=== PATIENT | female | born 1945 | race Caucasian/White ===

== ENCOUNTER 2017-12-04 10:25 | Emergency (ER) | payer MEDICARE, OTHER, SELFPAY | END 2017-12-04 13:50 | disposition home or self-care (01) | PROVIDERS: Emergency Provider Emergency Medicine; Family Provider Internal Medicine; PCP Internal Medicine; Visit Provider Emergency Medicine | DX: J18.1 Lobar pneumonia, unspecified organism (principal); I50.9 Heart failure, unspecified | CPT/HCPCS: 36415; 71020; 71046; 80053; 83605; 83880; 84484; 85025; 85610; 85730; 87040; 93005; 93010; 96374; 99058; 99284; J1940 ==

== ENCOUNTER → 2018-04-12 15:31 | Outpatient (CLI) | payer MEDICARE, OTHER, SELFPAY ==
[2018-04-12 16:32] LABS: Appearance Urine UA CLOUDY; Bilirubin Urine UA NEGATIVE (NEGATIVE); Color Urine UA RED; Ketones Urine UA NEGATIVE (NEGATIVE); Leukocyte Esterase Urine UA 1+ (NEGATIVE); Nitrite Urine UA POSITIVE (Negative); Occult Blood Urine UA 3+ (Negative); Protein Urine UA 3+ (Negative); Specific Gravity Urine UA 1.015 (1.000-1.035); pH Urine UA 8.5 (4.5-8.0)
[2018-04-12 16:34] LABS: Glucose Urine UA Normal (Normal)
[2018-04-12 16:35] LABS: RBC Urine >100/HPF (0-5/HPF); Squamous Epithelial Cell Urine 1-5 /HPF; WBC Urine 10-30/HPF (0-5/HPF)
[2018-04-12 16:36] LABS: Bacteria Urine Many (>30); Culture Indicated Urine Specimen Cultured
== END ==
PROVIDERS: PCP Physician Assistant; Visit Provider Physician Assistant
DX: R10.84 Generalized abdominal pain (principal)
CPT/HCPCS: 81001; 87077; 87086; 87186

== ENCOUNTER 2018-07-15 16:38 | Inpatient (IN) | payer MEDICARE, OTHER, SELFPAY ==
[2018-07-15 16:59] VITALS: BP 200/149; PULSE 78; RESP 24; TEMP 36.7; O2SAT 100
--- NOTE | 2018-07-15 17:02 | ED.ABDPAIN ---
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 Patient's states that sometimes there but sometimes not. She states that is not present currently. It is on the right side sometimes. Patient also has not been eating very much according to the . I states she has been drinking liquids but has not been interested in food even though he offers anything that she would be interested in normally. No fevers. No passing out, no lateral weakness but he states she seems weaker than normal particularly today. They went out to dinner patient was complaining of some pain in her abdomen at that time which has since resolved but he states walking her out car she had difficulty. He states it was a generalized weakness and she agrees. Patient denies any chest pain or shortness of breath she denies any nausea or vomiting she has been having normal bowel she did a urine does the last week or 2 but they do not know the result there is concern for bladder infection. Patient has not had major changes to urination. Her states her color is not good and she is very pale. Related Data Home Medications Medication Instructions Recorded Confirmed alprazolam [Xanax XR] 0.5 mg PO BID PRN #0 01/11/17 tramadol 50 mg PO TID PRN #0 01/11/17 Previous Rx's Medication Instructions Recorded dabigatran etexilate [Pradaxa] 150 mg PO BID #60 cap 01/15/17 diltiazem HCl 240 mg PO QDAY #30 cap 01/15/17 metoprolol tartrate 50 mg PO BID #60 tab 01/15/17 Allergies Allergy/AdvReac Type Severity Reaction Status Date / Time No Known Allergies Allergy Uncoded 11/23/17 12:37 unknown Allergy Uncoded 07/15/18 16:59 Review of Systems Review of Systems All systems reviewed & are unremarkable except as noted in HPI and below (Patient can answer yes or no but has difficulty with actual speech.) Constitutional Reports anorexia, Denies fever(s), Denies frequent falls (no recent falls/trauma), Denies headache(s) and Reports weakness (general) Eyes Denies change in vision ENT Ears, Nose, Mouth, and Throat: Denies headache(s) Cardiovascular Denies chest pain, Denies diaphoresis, Denies syncope, Denies irregular heart rhythm, Denies lightheadedness, Denies palpitations, Denies dyspnea and Denies orthopnea Respiratory Denies change in phlegm color, Denies chest congestion, Denies cough and Denies dyspnea Gastrointestinal Gastrointestinal: Reports abdominal pain, Denies melena, Denies hematochezia, Denies change in bowel habits, Denies constipation, Denies diarrhea, Denies nausea and Denies vomiting Genitourinary Denies hematuria, Reports urinary frequency, Denies flank pain, Denies urinary incontinence and Denies urinary urgency Musculoskeletal Denies back pain Integumentary/Breasts Reports other (pallor) Neurologic Denies syncope, Denies frequent falls (no recent falls/trauma), Denies headache(s) and Reports weakness (general) Endocrine Denies palpitations PFSH Medical History Atrial fibrillation (Acute) Social History marital status: household members: spouse Smoking Status: Never smoker alcohol intake: current substance use type: does not use Exam Narrative Exam Narrative: GEN: well nourished, well appearing elderly female, patient is pale, alert and oriented, patient has difficulty giving full answers but is able to say yes or no and easily answers questions from this perspective. She can tell me her name with difficulty. patient appears to be in mild distress. HEENT: Atraumatic, pupils are equal round reactive to light, extraocular movements are intact, nares are clear, there is no conjunctival pallor. HEART: Regular rate and rhythm without murmur, clicks, rubs. Pulses are equal in upper and lower extremities LUNGS:Lungs clear to auscultation, no wheezes, rales, crackles, chest moves symmetrically ABD:bowel sounds normal, soft, non-tender, no guarding, rebound, rigidity, no masses noted, no hepatosplenomegaly :No CVA tenderness MSCL: Non-tender, no muscle atrophy, muscles strength 5/5 upper and lower extremities, full range of motion NEURO:CN 2-12 intact, sensation normal Initial Vital Signs Initial Vital Signs: Vital Signs Temperature 98.1 F 07/15/18 16:59 Pulse Rate 78 07/15/18 16:59 Respiratory Rate 24 07/15/18 16:59 Blood Pressure 200/149 H 07/15/18 16:59 Pulse Oximetry 100 07/15/18 16:59 Course Orders Ordered: ED Orders 07/15/18 16:51 Complete Blood Count AUTO DIFF Stat Comprehensive Metabolic Panel Stat Lipase Stat Troponin & CK Cardiac Panel Stat Type and Screen Stat 07/15/18 17:00 EKG-12 Lead Stat 07/15/18 17:01 XR acute abdomen series Stat 07/15/18 17:38 CT chest abd pel w con Stat Potassium Chloride/Sodium Chloride (Ns With Kcl 40 Meq) 1,000 mls @ 84 mls/hr IV CONT SHAHRAM Discontinued Medications Sodium Chloride (Normal Saline 0.9%) 1,000 mls @ 1,000 mls/hr IV BOLUS ONE Stop: 07/15/18 17:59 Last Admin: 07/15/18 17:55 Dose: 1,000 mls/hr Vital Signs - 8 hr 07/15/18 16:59 Temperature 98.1 F Pulse Rate 78 Respiratory Rate 24 Blood Pressure 200/149 H Pulse Oximetry 100 MDM - Abdominal Pain Lab Data Result diagrams: 07/15/18 16:51 07/15/18 16:51 Lab Results 07/15/18 07/15/18 07/15/18 Range/Units 16:51 16:51 16:51 WBC 6.1 (4.5-11.0) X10^3/uL RBC 3.04 L (4.0-5.2) X10^6/uL Hgb 12.0 (12.0-16.0) g/dL Hct 34.0 L (36-46) % MCV 112.1 H (80-100) fL MCH 39.6 H (26-34) PG MCHC 35.3 (30-36) % RDW 13.7 (11.6-14.8) % Plt Count 249 (150-400) X10^3/uL Neut % (Auto) 73.0 (50-75) % Lymph % (Auto) 14.2 L (25-40) % [place] % (Auto) 6.9 (3-14) % Eos % (Auto) 5.2 H (2-4) % Baso % (Auto) 0.7 (0-2) % Neut # (Auto) 4400 (6542-2839) /uL Sodium (137-145) mmol/L Potassium (3.4-5.1) mmol/L Chloride (98-107) mmol/L Carbon Dioxide (22-32) mmol/L BUN (7-17) mg/dL Creatinine (0.52-1.04) mg/dL Estimated GFR (>60) mL/min BUN/Creatinine Ratio (6-22) Glucose (80-110) mg/dL Calcium (8.4-10.2) mg/dL Total Bilirubin (0.2-1.3) mg/dL AST (14-36) IU/L ALT (9-52) IU/L Alkaline Phosphatase (38-126) U/L Total Creatine Kinase 26 L (30-135) U/L CK-MB (CK-2) TNP CK-MB (CK-2) Rel Index TNP Troponin I 0.014 (0.01-0.034) ng/mL Total Protein (6.3-8.2) g/dL Albumin (3.5-5.0) g/dL Globulin (1.7-4.1) g/dL Albumin/Globulin Ratio (1.0-2.8) Lipase (23-300) U/L Blood Type O Positive 07/15/18 Range/Units 16:51 WBC (4.5-11.0) X10^3/uL RBC (4.0-5.2) X10^6/uL Hgb (12.0-16.0) g/dL Hct (36-46) % MCV (80-100) fL MCH (26-34) PG MCHC (30-36) % RDW (11.6-14.8) % Plt Count (150-400) X10^3/uL Neut % (Auto) (50-75) % Lymph % (Auto) (25-40) % [place] % (Auto) (3-14) % Eos % (Auto) (2-4) % Baso % (Auto) (0-2) % Neut # (Auto) (6094-3604) /uL Sodium 142 (137-145) mmol/L Potassium 2.6 L* (3.4-5.1) mmol/L Chloride 98 (98-107) mmol/L Carbon Dioxide 28 (22-32) mmol/L BUN 15 (7-17) mg/dL Creatinine 0.90 (0.52-1.04) mg/dL Estimated GFR > 60.0 (>60) mL/min BUN/Creatinine Ratio 16.7 (6-22) Glucose 163 H (80-110) mg/dL Calcium 10.7 H (8.4-10.2) mg/dL Total Bilirubin 0.8 (0.2-1.3) mg/dL AST 48 H (14-36) IU/L ALT 18 (9-52) IU/L Alkaline Phosphatase 133 H (38-126) U/L Total Creatine Kinase (30-135) U/L CK-MB (CK-2) CK-MB (CK-2) Rel Index Troponin I (0.01-0.034) ng/mL Total Protein 8.2 (6.3-8.2) g/dL Albumin 4.0 (3.5-5.0) g/dL Globulin 4.2 H (1.7-4.1) g/dL Albumin/Globulin Ratio 1.0 (1.0-2.8) Lipase 104 (23-300) U/L Blood Type Imaging Data chest/abd xray: Radiologist's impression: [address] [address] XRay Report Signed Patient: Elisha Shultz [facility]#: [id number] : 8Acct:[id number] Age/Sex: 72 / FDate of Service: 07/15/18 Loc: ED Accession Number: [id number] Procedure: XR acute abdomen series Ordering Provider: Nury Callejas D.O. PROCEDURE: XR ACUTE ABDOMEN SERIES INDICATIONS: abdominal pain TECHNIQUE: One view chest and two views of the abdomen were acquired. COMPARISON: [facility], , CHEST 2 VIEW, 12/04/2017, 10:41. FINDINGS: Surgical changes and devices: Status post ORIF of right clavicle fracture. Chest: Lungs are clear. Heart size is normal. Patchy opacities noted in the right lung concerning for multilobar pneumonia. No pneumoperitoneum. Abdomen: Bowel gas pattern is normal. Large amount of stool noted in the rectal vault. No suspicious calcifications. Visualized solid organ contours appear normal. Bones: No suspicious bony lesions. Convex left lumbar spine scoliosis. IMPRESSION: 1. Right-sided multilobar pneumonia. 2. Severe fecal loading in the rectum concerning for fecal impaction. Dictated by: Adelina Cabello MD, PhD on 07/15/2018 at 17:33 Approved by: Adelina Cabello MD, PhD on 07/15/2018 at 17:34 ECG Data Attestation: I personally reviewed and interpreted this ECG as follows: Prior ECG tracings: available for review Interpretation: AFib with ventricular rate of 73 QRS of 132 and a QTC of 422. The patient has ST depression in V2 V5. Patient's prior EKG appears similar with ST segments in all leads. MDM Narrative Medical decision making narrative: Patient's lab work shows a hypokalemia which is likely secondary to her decreased intake although glucose is 163. Patient appears to have pneumonia on chest xray but also lower abdominal pain, Ct imaging ordered. Patient signed out to Dr. ochoa while pending for final dispo. Discharge Plan Departure Prescriptions: No Action tramadol 50 MG tablet 50 mg PO TID PRNQty: 0 RF: 0 alprazolam [Xanax XR] 0.5 MG tablet extended release 24 hr 0.5 mg PO BID PRNQty: 0 RF: 0 diltiazem HCl 240 MG capsule,extended release 24hr 240 mg PO QDAY Qty: 30 RF: 0 dabigatran etexilate [Pradaxa] 75 MG capsule 150 mg PO BID Qty: 60 RF: 0 metoprolol tartrate 50 MG tablet 50 mg PO BID Qty: 60 RF: 0
--- NOTE | 2018-07-15 17:10 | ED_ITS ---
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 Patient's states that sometimes there but sometimes not. She states that is not present currently. It is on the right side sometimes. Patient also has not been eating very much according to the . I states she has been drinking liquids but has not been interested in food even though he offers anything that she would be interested in normally. No fevers. No passing out, no lateral weakness but he states she seems weaker than normal particularly today. They went out to dinner patient was complaining of some pain in her abdomen at that time which has since resolved but he states walking her out car she had difficulty. He states it was a generalized weakness and she agrees. Patient denies any chest pain or shortness of breath she denies any nausea or vomiting she has been having normal bowel she did a urine does the last week or 2 but they do not know the result there is concern for bladder infection. Patient has not had major changes to urination. Her states her color is not good and she is very pale. Related Data Home Medications Medication Instructions Recorded Confirmed alprazolam [Xanax XR] 0.5 mg PO BID PRN #0 01/11/17 tramadol 50 mg PO TID PRN #0 01/11/17 Previous Rx's Medication Instructions Recorded dabigatran etexilate [Pradaxa] 150 mg PO BID #60 cap 01/15/17 diltiazem HCl 240 mg PO QDAY #30 cap 01/15/17 metoprolol tartrate 50 mg PO BID #60 tab 01/15/17 Allergies Allergy/AdvReac Type Severity Reaction Status Date / Time No Known Allergies Allergy Uncoded 11/23/17 12:37 unknown Allergy Uncoded 07/15/18 16:59 Review of Systems Review of Systems All systems reviewed & are unremarkable except as noted in HPI and below ( Patient can answer yes or no but has difficulty with actual speech.) Constitutional Reports anorexia, Denies fever(s), Denies frequent falls (no recent falls/trauma ), Denies headache(s) and Reports weakness (general) Eyes Denies change in vision ENT Ears, Nose, Mouth, and Throat: Denies headache(s) Cardiovascular Denies chest pain, Denies diaphoresis, Denies syncope, Denies irregular heart rhythm, Denies lightheadedness, Denies palpitations, Denies dyspnea and Denies orthopnea Respiratory Denies change in phlegm color, Denies chest congestion, Denies cough and Denies dyspnea Gastrointestinal Gastrointestinal: Reports abdominal pain, Denies melena, Denies hematochezia, Denies change in bowel habits, Denies constipation, Denies diarrhea, Denies nausea and Denies vomiting Genitourinary Denies hematuria, Reports urinary frequency, Denies flank pain, Denies urinary incontinence and Denies urinary urgency Musculoskeletal Denies back pain Integumentary/Breasts Reports other (pallor) Neurologic Denies syncope, Denies frequent falls (no recent falls/trauma), Denies headache( s) and Reports weakness (general) Endocrine Denies palpitations PFSH Medical History Atrial fibrillation (Acute) Social History marital status: household members: spouse Smoking Status: Never smoker alcohol intake: current substance use type: does not use Exam Narrative Exam Narrative: GEN: well nourished, well appearing elderly female, patient is pale, alert and oriented, patient has difficulty giving full answers but is able to say yes or no and easily answers questions from this perspective. She can tell me her name with difficulty. patient appears to be in mild distress. HEENT: Atraumatic, pupils are equal round reactive to light, extraocular movements are intact, nares are clear, there is no conjunctival pallor. HEART: Regular rate and rhythm without murmur, clicks, rubs. Pulses are equal in upper and lower extremities LUNGS:Lungs clear to auscultation, no wheezes, rales, crackles, chest moves symmetrically ABD:bowel sounds normal, soft, non-tender, no guarding, rebound, rigidity, no masses noted, no hepatosplenomegaly :No CVA tenderness MSCL: Non-tender, no muscle atrophy, muscles strength 5/5 upper and lower extremities, full range of motion NEURO:CN 2-12 intact, sensation normal Initial Vital Signs Initial Vital Signs: Vital Signs Temperature 98.1 F 07/15/18 16:59 Pulse Rate 78 07/15/18 16:59 Respiratory Rate 24 07/15/18 16:59 Blood Pressure 200/149 H 07/15/18 16:59 Pulse Oximetry 100 07/15/18 16:59 Course Orders Ordered: ED Orders 07/15/18 16:51 Complete Blood Count AUTO DIFF Stat Comprehensive Metabolic Panel Stat Lipase Stat Troponin & CK Cardiac Panel Stat Type and Screen Stat 07/15/18 17:00 EKG-12 Lead Stat 07/15/18 17:01 XR acute abdomen series Stat 07/15/18 17:38 CT chest abd pel w con Stat Potassium Chloride/Sodium Chloride (Ns With Kcl 40 Meq) 1,000 mls @ 84 mls/hr IV CONT SHAHRAM Discontinued Medications Sodium Chloride (Normal Saline 0.9%) 1,000 mls @ 1,000 mls/hr IV BOLUS ONE Stop: 07/15/18 17:59 Last Admin: 07/15/18 17:55 Dose: 1,000 mls/hr Vital Signs - 8 hr 07/15/18 16:59 Temperature 98.1 F Pulse Rate 78 Respiratory Rate 24 Blood Pressure 200/149 H Pulse Oximetry 100 MDM - Abdominal Pain Lab Data Result diagrams: 07/15/18 16:51 07/15/18 16:51 Lab Results 07/15/18 07/15/18 07/15/18 Range/Units 16:51 16:51 16:51 WBC 6.1 (4.5-11.0) X10^3/uL RBC 3.04 L (4.0-5.2) X10^6/uL Hgb 12.0 (12.0-16.0) g/dL Hct 34.0 L (36-46) % MCV 112.1 H (80-100) fL MCH 39.6 H (26-34) PG MCHC 35.3 (30-36) % RDW 13.7 (11.6-14.8) % Plt Count 249 (150-400) X10^3/uL Neut % (Auto) 73.0 (50-75) % Lymph % (Auto) 14.2 L (25-40) % [place] % (Auto) 6.9 (3-14) % Eos % (Auto) 5.2 H (2-4) % Baso % (Auto) 0.7 (0-2) % Neut # (Auto) 4400 (2821-1818) /uL Sodium (137-145) mmol/L Potassium (3.4-5.1) mmol/L Chloride (98-107) mmol/L Carbon Dioxide (22-32) mmol/L BUN (7-17) mg/dL Creatinine (0.52-1.04) mg/dL Estimated GFR (>60) mL/min BUN/Creatinine Ratio (6-22) Glucose (80-110) mg/dL Calcium (8.4-10.2) mg/dL Total Bilirubin (0.2-1.3) mg/dL AST (14-36) IU/L ALT (9-52) IU/L Alkaline Phosphatase (38-126) U/L Total Creatine Kinase 26 L (30-135) U/L CK-MB (CK-2) TNP CK-MB (CK-2) Rel Index TNP Troponin I 0.014 (0.01-0.034) ng/mL Total Protein (6.3-8.2) g/dL Albumin (3.5-5.0) g/dL Globulin (1.7-4.1) g/dL Albumin/Globulin Ratio (1.0-2.8) Lipase (23-300) U/L Blood Type O Positive 07/15/18 Range/Units 16:51 WBC (4.5-11.0) X10^3/uL RBC (4.0-5.2) X10^6/uL Hgb (12.0-16.0) g/dL Hct (36-46) % MCV (80-100) fL MCH (26-34) PG MCHC (30-36) % RDW (11.6-14.8) % Plt Count (150-400) X10^3/uL Neut % (Auto) (50-75) % Lymph % (Auto) (25-40) % [place] % (Auto) (3-14) % Eos % (Auto) (2-4) % Baso % (Auto) (0-2) % Neut # (Auto) (5204-2147) /uL Sodium 142 (137-145) mmol/L Potassium 2.6 L* (3.4-5.1) mmol/L Chloride 98 (98-107) mmol/L Carbon Dioxide 28 (22-32) mmol/L BUN 15 (7-17) mg/dL Creatinine 0.90 (0.52-1.04) mg/dL Estimated GFR > 60.0 (>60) mL/min BUN/Creatinine Ratio 16.7 (6-22) Glucose 163 H (80-110) mg/dL Calcium 10.7 H (8.4-10.2) mg/dL Total Bilirubin 0.8 (0.2-1.3) mg/dL AST 48 H (14-36) IU/L ALT 18 (9-52) IU/L Alkaline Phosphatase 133 H (38-126) U/L Total Creatine Kinase (30-135) U/L CK-MB (CK-2) CK-MB (CK-2) Rel Index Troponin I (0.01-0.034) ng/mL Total Protein 8.2 (6.3-8.2) g/dL Albumin 4.0 (3.5-5.0) g/dL Globulin 4.2 H (1.7-4.1) g/dL Albumin/Globulin Ratio 1.0 (1.0-2.8) Lipase 104 (23-300) U/L Blood Type Imaging Data chest/abd xray: Radiologist's impression: [address] [address] XRay Report Signed Patient: Elisha Shultz [facility]#: [id number] : 8Acct:[id number] Age/Sex: 72 / FDate of Service: 07/15/18 Loc: ED Accession Number: [id number] Procedure: XR acute abdomen series Ordering Provider: Nury Callejas D.O. PROCEDURE: XR ACUTE ABDOMEN SERIES INDICATIONS: abdominal pain TECHNIQUE: One view chest and two views of the abdomen were acquired. COMPARISON: [facility], , CHEST 2 VIEW, 12/04/2017, 10:41. FINDINGS: Surgical changes and devices: Status post ORIF of right clavicle fracture. Chest: Lungs are clear. Heart size is normal. Patchy opacities noted in the right lung concerning for multilobar pneumonia. No pneumoperitoneum. Abdomen: Bowel gas pattern is normal. Large amount of stool noted in the rectal vault. No suspicious calcifications. Visualized solid organ contours appear normal. Bones: No suspicious bony lesions. Convex left lumbar spine scoliosis. IMPRESSION: 1. Right-sided multilobar pneumonia. 2. Severe fecal loading in the rectum concerning for fecal impaction. Dictated by: Adelina Cabello MD, PhD on 07/15/2018 at 17:33 Approved by: Adelina Cabello MD, PhD on 07/15/2018 at 17:34 ECG Data Attestation: I personally reviewed and interpreted this ECG as follows: Prior ECG tracings: available for review Interpretation: AFib with ventricular rate of 73 QRS of 132 and a QTC of 422. The patient has ST depression in V2 V5. Patient's prior EKG appears similar with ST segments in all leads. MDM Narrative Medical decision making narrative: Patient's lab work shows a hypokalemia which is likely secondary to her decreased intake although glucose is 163. Patient appears to have pneumonia on chest xray but also lower abdominal pain, Ct imaging ordered. Patient signed out to Dr. ochoa while pending for final dispo. Discharge Plan Departure Prescriptions: No Action tramadol 50 MG tablet 50 mg PO TID PRNQty: 0 RF: 0 alprazolam [Xanax XR] 0.5 MG tablet extended release 24 hr 0.5 mg PO BID PRNQty: 0 RF: 0 diltiazem HCl 240 MG capsule,extended release 24hr 240 mg PO QDAY Qty: 30 RF: 0 dabigatran etexilate [Pradaxa] 75 MG capsule 150 mg PO BID Qty: 60 RF: 0 metoprolol tartrate 50 MG tablet 50 mg PO BID Qty: 60 RF: 0
[2018-07-15 17:18] LABS: Add Manual Diff / Slide Review NO; Basophils Percent Auto 0.7 % (0-2); Eosinophils Percent Auto 5.2 % (2-4); Lymphocytes Percent Auto 14.2 % (25-40); Mean Corpuscular HGB Conc 35.3 % (30-36); Mean Corpuscular Hemoglobin 39.6 PG (26-34); Mean Corpuscular Volume 112.1 fL (80-100); Monocytes Percent Auto 6.9 % (3-14); Neutrophils Absolute Auto 4400 /uL (3000-5900); Platelet Count 249 X10^3/uL (150-400); Red Blood Cell Count 3.04 X10^6/uL (4.0-5.2); Red Cell Distribution Width 13.7 % (11.6-14.8); White Blood Cell Count 6.1 X10^3/uL (4.5-11.0)
[2018-07-15 17:19] LABS: Creatine Kinase 26 U/L (30-135)
[2018-07-15 17:20] LABS: Alanine Aminotransferase 18 IU/L (9-52); Alkaline Phosphatase 133 U/L (38-126); Aspartate Aminotransferase 48 IU/L (14-36); BUN Creatinine Ratio 16.7 (6-22); Bilirubin Total 0.8 mg/dL (0.2-1.3); Blood Urea Nitrogen 15 mg/dL (7-17); Calcium 10.7 mg/dL (8.4-10.2); Carbon Dioxide 28 mmol/L (22-32); Chloride 98 mmol/L (98-107); Estimated Glomerular Filt Rate > 60.0 mL/min (>60); Globulin 4.2 g/dL (1.7-4.1); Glucose 163 mg/dL (80-110); HEMOLYSIS < 15 (0-50); Lipase 104 U/L (23-300); Sodium 142 mmol/L (137-145); Total Protein 8.2 g/dL (6.3-8.2)
[2018-07-15 17:32] LABS: Troponin I 0.014 ng/mL (0.01-0.034)
[2018-07-15 17:33] LABS: Potassium 2.6 mmol/L (3.4-5.1)
--- NOTE | 2018-07-15 17:38 | DI.CT.S_ITS ---
PROCEDURE: CT CHEST ABD PEL W CON INDICATIONS: lower abdominal pain, ? pnuemonia, weakness TECHNIQUE: After the administration of intravenous contrast, 5 mm thick sections acquired from the lung apices to the symphysis. 5 mm coronal and sagittal reformats were performed, with additional 7 mm MIP reformats through the lungs. For radiation dose reduction, the following was used: automated exposure control, adjustment of mA and/or kV according to patient size. COMPARISON: [facility], CR, CHEST 2 VIEW, 12/04/2017, 10:41. [facility], CR, XR ACUTE ABDOMEN SERIES, 07/15/2018, 17:13. FINDINGS: Image quality: Excellent. CHEST: Lungs and pleura: Patchy consolidation noted in the right lung compatible with multilobar pneumonia. Left lung is clear of acute opacities. Trace right-sided pleural effusion noted. No pneumothorax. Central and peripheral airways appear patent and normal in caliber. Mediastinum: Heart size is enlarged. No pericardial effusion. No mediastinal or hilar adenopathy by size criteria. Thoracic aorta and central pulmonary arteries are normal in size. Esophagus is normal in caliber. No hiatal hernia. Chest wall: No axillary or supraclavicular adenopathy by size criteria. ABDOMEN: Solid organs: Liver is normal in size and enhancement. Gallbladder is within normal limits. Biliary system is non dilated. Pancreas enhances normally. Spleen is normal in size and enhancement. No adrenal nodules. Kidneys demonstrate normal size and enhancement, without hydronephrosis. Peritoneum and bowel: Moderate amount of stool noted in the right colon. Large amount of stool noted in the rectum. There is mild, diffuse rectal wall thickening with adjacent mild inflammatory changes. No free air. Trace free fluid noted in the presacral pelvis. The appendix is not definitely visualized. Nodes and vessels: No retroperitoneal or mesenteric adenopathy by size criteria. Aorta and inferior vena cava are normal in size. Scattered atherosclerotic calcifications are noted in the abdominal and pelvic vasculature. Miscellaneous: No ventral hernias. PELVIS: Genitourinary: Bladder wall thickness is normal. Miscellaneous: No inguinal hernias or adenopathy. Bones: No suspicious bony lesions. Chronic appearing L1 and L3 compression fractures. Postsurgical changes compatible with ORIF of right clavicle fracture noted. Chronic appearing anterior right second and third rib fractures are noted. Spine degenerative disease and facet arthropathy noted. IMPRESSION: 1. Right lung multilobar pneumonia. 2. Stercoral proctitis with rectal fecal impaction. Recommend close clinical observation to exclude developing stercoral ulcer. 3. Trace free fluid in the presacral pelvis likely related to adjacent proctitis. No fringe peritoneal air 4. Cardiomegaly. 5. Appendix is not definitely visualized. Early manifestation appendicitis cannot be excluded. Dictated by: Adelina Cabello MD, PhD on 07/15/2018 at 18:05 Approved by: Adelina Cabello MD, PhD on 07/15/2018 at 18:15
[2018-07-15] MEDS: SODIUM CHLORIDE 0.9% 1,000 ML 1000 ML IV (17:55)
[2018-07-15] MEDS: KCL 40 MEQ IN NS 1,000 ML 84 MEQ IV (18:07)
[2018-07-15 18:08] VITALS: BP 104/60; PULSE 72; RESP 18; O2SAT 95
[2018-07-15 18:23] LABS: RBC Morphology Normal Morphology
[2018-07-15 19:00] VITALS: BP 132/76; PULSE 76; RESP 19; O2SAT 94
[2018-07-15] MEDS: CEFTRIAXONE 1 GM/50 ML FROZ.PIGGY IV (19:04)
--- NOTE | 2018-07-15 19:12 | ED.WEAKNESS ---
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) Related Data Home Medications Medication Instructions Recorded Confirmed alprazolam [Xanax XR] 0.5 mg PO BID PRN #0 01/11/17 07/15/18 tramadol 50 mg PO TID PRN #0 01/11/17 07/15/18 Previous Rx's Medication Instructions Recorded dabigatran etexilate [Pradaxa] 150 mg PO BID #60 cap 01/15/17 diltiazem HCl 240 mg PO QDAY #30 cap 01/15/17 metoprolol tartrate 50 mg PO BID #60 tab 01/15/17 Allergies Allergy/AdvReac Type Severity Reaction Status Date / Time metronidazole [From Flagyl] Allergy Severe Anaphylaxis Verified 07/15/18 22:02 Review of Systems Constitutional Denies frequent falls (no recent falls/trauma), Denies headache(s) and Reports weakness (general) ENT Ears, Nose, Mouth, and Throat: Denies headache(s) Cardiovascular Denies syncope Neurologic Denies syncope, Denies frequent falls (no recent falls/trauma), Denies headache(s) and Reports weakness (general) PFSH Medical History Atrial fibrillation (Acute) Social History marital status: household members: spouse Smoking Status: Never smoker alcohol intake: current substance use type: does not use Exam Initial Vital Signs Initial Vital Signs: Vital Signs Temperature 98.1 F 07/15/18 16:59 Pulse Rate 78 07/15/18 16:59 Respiratory Rate 24 07/15/18 16:59 Blood Pressure 200/149 H 07/15/18 16:59 Pulse Oximetry 100 07/15/18 16:59 Course Orders Ordered: ED Orders 07/15/18 16:51 Complete Blood Count AUTO DIFF Stat Comprehensive Metabolic Panel Stat Lipase Stat Troponin & CK Cardiac Panel Stat Type and Screen Stat 07/15/18 17:00 EKG-12 Lead Stat 07/15/18 17:01 XR acute abdomen series Stat 07/15/18 17:38 CT chest abd pel w con Stat 07/16/18 05:00 Basic Metabolic Panel Routine Complete Blood Count AUTO DIFF Routine Potassium Chloride/Sodium Chloride (Ns With Kcl 40 Meq) 1,000 mls @ 84 mls/hr IV CONT SHAHRAM Last Infusion: 07/15/18 19:58 Dose: 84 mls/hr Admin: 07/15/18 18:07 Dose: 84 mls/hr Azithromycin 500 mg/ Dextrose 250 mls @ 250 mls/hr IV Q24H [facility] Last Infusion: 07/15/18 23:27 Dose: 0 mls/hr Admin: 07/15/18 21:49 Dose: 250 mls/hr Sodium Chloride (Normal Saline 0.9%) 1,000 mls @ 125 mls/hr IV CONT SHAHRAM Last Admin: 07/15/18 21:52 Dose: 125 mls/hr Tramadol HCl (Ultram) 50 mg PO QID PRN PRN Reason: Pain, Moderate (4-6) Last Admin: 07/15/18 23:50 Dose: 50 mg Discontinued Medications Sodium Chloride (Normal Saline 0.9%) 1,000 mls @ 1,000 mls/hr IV BOLUS ONE Stop: 07/15/18 17:59 Last Infusion: 07/15/18 19:12 Dose: 0 mls/hr Admin: 07/15/18 17:55 Dose: 1,000 mls/hr Ceftriaxone Sodium/Dextrose (Rocephin) 1 gm in 50 mls @ 100 mls/hr IV NOW ONE Stop: 07/15/18 18:36 Last Infusion: 07/15/18 19:58 Dose: 0 mls/hr Admin: 07/15/18 19:04 Dose: 100 mls/hr Metronidazole (Flagyl) 500 mg in 100 mls @ 100 mls/hr IV Q8H [facility] Last Admin: 07/15/18 22:00 Dose: Not Given Reevaluation(s) Reevaluation #1: I received sign-out from Dr. Callejas and have performed my own history and physical. I have reviewed labs and imaging with the patient and her and discussed diagnoses including multi lobar pneumonia, hypokalemia, and fecal impaction with stercoral proctitis. Consultations Consultation #1: Dr. Saldañale happy to accept. Requests ABX, fluids at 125, repeat labs in the morning Additionally, I called Dr. Cortés (Gen. Surgery) to discuss treatment plan for stercoral proctitis. He suggests addition of flagyl to ABX regimen as well as stool softeners Vital Signs - 8 hr 07/15/18 16:59 07/15/18 18:08 07/15/18 19:00 Temperature 98.1 F Pulse Rate 78 72 76 Respiratory Rate 24 18 19 Blood Pressure 200/149 H Blood Pressure [Left Arm] 104/60 132/76 Pulse Oximetry 100 95 94 07/15/18 19:50 07/15/18 23:50 Temperature 98.3 F 98.1 F Pulse Rate 86 77 Respiratory Rate 20 18 Blood Pressure 121/78 122/68 Blood Pressure [Left Arm] Pulse Oximetry 94 96 MDM - Weakness Lab Data Result diagrams: 07/15/18 16:51 07/15/18 16:51 Lab Results 07/15/18 07/15/18 07/15/18 Range/Units 16:51 16:51 16:51 WBC 6.1 (4.5-11.0) X10^3/uL RBC 3.04 L (4.0-5.2) X10^6/uL Hgb 12.0 (12.0-16.0) g/dL Hct 34.0 L (36-46) % MCV 112.1 H (80-100) fL MCH 39.6 H (26-34) PG MCHC 35.3 (30-36) % RDW 13.7 (11.6-14.8) % Plt Count 249 (150-400) X10^3/uL Neut % (Auto) 73.0 (50-75) % Lymph % (Auto) 14.2 L (25-40) % [place] % (Auto) 6.9 (3-14) % Eos % (Auto) 5.2 H (2-4) % Baso % (Auto) 0.7 (0-2) % Neut # (Auto) 4400 (7478-2227) /uL RBC Morphology Normal morphology Sodium (137-145) mmol/L Potassium (3.4-5.1) mmol/L Chloride (98-107) mmol/L Carbon Dioxide (22-32) mmol/L BUN (7-17) mg/dL Creatinine (0.52-1.04) mg/dL Estimated GFR (>60) mL/min BUN/Creatinine Ratio (6-22) Glucose (80-110) mg/dL Calcium (8.4-10.2) mg/dL Total Bilirubin (0.2-1.3) mg/dL AST (14-36) IU/L ALT (9-52) IU/L Alkaline Phosphatase (38-126) U/L Total Creatine Kinase 26 L (30-135) U/L CK-MB (CK-2) TNP CK-MB (CK-2) Rel Index TNP Troponin I 0.014 (0.01-0.034) ng/mL Total Protein (6.3-8.2) g/dL Albumin (3.5-5.0) g/dL Globulin (1.7-4.1) g/dL Albumin/Globulin Ratio (1.0-2.8) Lipase (23-300) U/L Blood Type O Positive Antibody Screen Negative 07/15/18 Range/Units 16:51 WBC (4.5-11.0) X10^3/uL RBC (4.0-5.2) X10^6/uL Hgb (12.0-16.0) g/dL Hct (36-46) % MCV (80-100) fL MCH (26-34) PG MCHC (30-36) % RDW (11.6-14.8) % Plt Count (150-400) X10^3/uL Neut % (Auto) (50-75) % Lymph % (Auto) (25-40) % [place] % (Auto) (3-14) % Eos % (Auto) (2-4) % Baso % (Auto) (0-2) % Neut # (Auto) (5127-5911) /uL RBC Morphology Sodium 142 (137-145) mmol/L Potassium 2.6 L* (3.4-5.1) mmol/L Chloride 98 (98-107) mmol/L Carbon Dioxide 28 (22-32) mmol/L BUN 15 (7-17) mg/dL Creatinine 0.90 (0.52-1.04) mg/dL Estimated GFR > 60.0 (>60) mL/min BUN/Creatinine Ratio 16.7 (6-22) Glucose 163 H (80-110) mg/dL Calcium 10.7 H (8.4-10.2) mg/dL Total Bilirubin 0.8 (0.2-1.3) mg/dL AST 48 H (14-36) IU/L ALT 18 (9-52) IU/L Alkaline Phosphatase 133 H (38-126) U/L Total Creatine Kinase (30-135) U/L CK-MB (CK-2) CK-MB (CK-2) Rel Index Troponin I (0.01-0.034) ng/mL Total Protein 8.2 (6.3-8.2) g/dL Albumin 4.0 (3.5-5.0) g/dL Globulin 4.2 H (1.7-4.1) g/dL Albumin/Globulin Ratio 1.0 (1.0-2.8) Lipase 104 (23-300) U/L Blood Type Antibody Screen Urine Dip Bedside Urine Glucose Negative Bedside Urine Bilirubin - Negative Bedside Urine Ketone - Negative Urine Specific [place] 1.010 Bedside Urine Occult Blood - Negative Bedside Urine pH 7.0 Bedside Urine Protein - Negative Bedside Urine Urobilinogen - Negative Bedside Urine Nitrite - Negative Bedside Urine Leukocytes - Negative Esterase Discharge Plan Departure Patient Disposition: Admitted As Inpatient Clinical Impression: Pneumonia, Acute hypokalemia, Abdominal pain Discharge Date/Time: 07/15/18 19:59 Interventions: ED Discharge Assessment Last Done: 07/15/18 19:59 Admit Date/Time: 07/15/18 19:14 Admit Provider: Eldon Swanson
--- NOTE | 2018-07-15 19:17 | ED_ITS ---
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) Related Data Home Medications Medication Instructions Recorded Confirmed alprazolam [Xanax XR] 0.5 mg PO BID PRN #0 01/11/17 07/15/18 tramadol 50 mg PO TID PRN #0 01/11/17 07/15/18 Previous Rx's Medication Instructions Recorded dabigatran etexilate [Pradaxa] 150 mg PO BID #60 cap 01/15/17 diltiazem HCl 240 mg PO QDAY #30 cap 01/15/17 metoprolol tartrate 50 mg PO BID #60 tab 01/15/17 Allergies Allergy/AdvReac Type Severity Reaction Status Date / Time metronidazole [From Flagyl] Allergy Severe Anaphylaxis Verified 07/15/18 22:02 Review of Systems Constitutional Denies frequent falls (no recent falls/trauma), Denies headache(s) and Reports weakness (general) ENT Ears, Nose, Mouth, and Throat: Denies headache(s) Cardiovascular Denies syncope Neurologic Denies syncope, Denies frequent falls (no recent falls/trauma), Denies headache( s) and Reports weakness (general) PFSH Medical History Atrial fibrillation (Acute) Social History marital status: household members: spouse Smoking Status: Never smoker alcohol intake: current substance use type: does not use Exam Initial Vital Signs Initial Vital Signs: Vital Signs Temperature 98.1 F 07/15/18 16:59 Pulse Rate 78 07/15/18 16:59 Respiratory Rate 24 07/15/18 16:59 Blood Pressure 200/149 H 07/15/18 16:59 Pulse Oximetry 100 07/15/18 16:59 Course Orders Ordered: ED Orders 07/15/18 16:51 Complete Blood Count AUTO DIFF Stat Comprehensive Metabolic Panel Stat Lipase Stat Troponin & CK Cardiac Panel Stat Type and Screen Stat 07/15/18 17:00 EKG-12 Lead Stat 07/15/18 17:01 XR acute abdomen series Stat 07/15/18 17:38 CT chest abd pel w con Stat 07/16/18 05:00 Basic Metabolic Panel Routine Complete Blood Count AUTO DIFF Routine Potassium Chloride/Sodium Chloride (Ns With Kcl 40 Meq) 1,000 mls @ 84 mls/hr IV CONT SHAHRAM Last Infusion: 07/15/18 19:58 Dose: 84 mls/hr Admin: 07/15/18 18:07 Dose: 84 mls/hr Azithromycin 500 mg/ Dextrose 250 mls @ 250 mls/hr IV Q24H [facility] Last Infusion: 07/15/18 23:27 Dose: 0 mls/hr Admin: 07/15/18 21:49 Dose: 250 mls/hr Sodium Chloride (Normal Saline 0.9%) 1,000 mls @ 125 mls/hr IV CONT SHAHRAM Last Admin: 07/15/18 21:52 Dose: 125 mls/hr Tramadol HCl (Ultram) 50 mg PO QID PRN PRN Reason: Pain, Moderate (4-6) Last Admin: 07/15/18 23:50 Dose: 50 mg Discontinued Medications Sodium Chloride (Normal Saline 0.9%) 1,000 mls @ 1,000 mls/hr IV BOLUS ONE Stop: 07/15/18 17:59 Last Infusion: 07/15/18 19:12 Dose: 0 mls/hr Admin: 07/15/18 17:55 Dose: 1,000 mls/hr Ceftriaxone Sodium/Dextrose (Rocephin) 1 gm in 50 mls @ 100 mls/hr IV NOW ONE Stop: 07/15/18 18:36 Last Infusion: 07/15/18 19:58 Dose: 0 mls/hr Admin: 07/15/18 19:04 Dose: 100 mls/hr Metronidazole (Flagyl) 500 mg in 100 mls @ 100 mls/hr IV Q8H [facility] Last Admin: 07/15/18 22:00 Dose: Not Given Reevaluation(s) Reevaluation #1: I received sign-out from Dr. Callejas and have performed my own history and physical. I have reviewed labs and imaging with the patient and her and discussed diagnoses including multi lobar pneumonia, hypokalemia , and fecal impaction with stercoral proctitis. Consultations Consultation #1: Dr. Saldañale happy to accept. Requests ABX, fluids at 125, repeat labs in the morning Additionally, I called Dr. Cortés (Gen. Surgery) to discuss treatment plan for stercoral proctitis. He suggests addition of flagyl to ABX regimen as well as stool softeners Vital Signs - 8 hr 07/15/18 16:59 07/15/18 18:08 07/15/18 19:00 Temperature 98.1 F Pulse Rate 78 72 76 Respiratory Rate 24 18 19 Blood Pressure 200/149 H Blood Pressure [Left Arm] 104/60 132/76 Pulse Oximetry 100 95 94 07/15/18 19:50 07/15/18 23:50 Temperature 98.3 F 98.1 F Pulse Rate 86 77 Respiratory Rate 20 18 Blood Pressure 121/78 122/68 Blood Pressure [Left Arm] Pulse Oximetry 94 96 MDM - Weakness Lab Data Result diagrams: 07/15/18 16:51 07/15/18 16:51 Lab Results 07/15/18 07/15/18 07/15/18 Range/Units 16:51 16:51 16:51 WBC 6.1 (4.5-11.0) X10^3/uL RBC 3.04 L (4.0-5.2) X10^6/uL Hgb 12.0 (12.0-16.0) g/dL Hct 34.0 L (36-46) % MCV 112.1 H (80-100) fL MCH 39.6 H (26-34) PG MCHC 35.3 (30-36) % RDW 13.7 (11.6-14.8) % Plt Count 249 (150-400) X10^3/uL Neut % (Auto) 73.0 (50-75) % Lymph % (Auto) 14.2 L (25-40) % [place] % (Auto) 6.9 (3-14) % Eos % (Auto) 5.2 H (2-4) % Baso % (Auto) 0.7 (0-2) % Neut # (Auto) 4400 (3187-3364) /uL RBC Morphology Normal morphology Sodium (137-145) mmol/L Potassium (3.4-5.1) mmol/L Chloride (98-107) mmol/L Carbon Dioxide (22-32) mmol/L BUN (7-17) mg/dL Creatinine (0.52-1.04) mg/dL Estimated GFR (>60) mL/min BUN/Creatinine Ratio (6-22) Glucose (80-110) mg/dL Calcium (8.4-10.2) mg/dL Total Bilirubin (0.2-1.3) mg/dL AST (14-36) IU/L ALT (9-52) IU/L Alkaline Phosphatase (38-126) U/L Total Creatine Kinase 26 L (30-135) U/L CK-MB (CK-2) TNP CK-MB (CK-2) Rel Index TNP Troponin I 0.014 (0.01-0.034) ng/mL Total Protein (6.3-8.2) g/dL Albumin (3.5-5.0) g/dL Globulin (1.7-4.1) g/dL Albumin/Globulin Ratio (1.0-2.8) Lipase (23-300) U/L Blood Type O Positive Antibody Screen Negative 07/15/18 Range/Units 16:51 WBC (4.5-11.0) X10^3/uL RBC (4.0-5.2) X10^6/uL Hgb (12.0-16.0) g/dL Hct (36-46) % MCV (80-100) fL MCH (26-34) PG MCHC (30-36) % RDW (11.6-14.8) % Plt Count (150-400) X10^3/uL Neut % (Auto) (50-75) % Lymph % (Auto) (25-40) % [place] % (Auto) (3-14) % Eos % (Auto) (2-4) % Baso % (Auto) (0-2) % Neut # (Auto) (3349-0596) /uL RBC Morphology Sodium 142 (137-145) mmol/L Potassium 2.6 L* (3.4-5.1) mmol/L Chloride 98 (98-107) mmol/L Carbon Dioxide 28 (22-32) mmol/L BUN 15 (7-17) mg/dL Creatinine 0.90 (0.52-1.04) mg/dL Estimated GFR > 60.0 (>60) mL/min BUN/Creatinine Ratio 16.7 (6-22) Glucose 163 H (80-110) mg/dL Calcium 10.7 H (8.4-10.2) mg/dL Total Bilirubin 0.8 (0.2-1.3) mg/dL AST 48 H (14-36) IU/L ALT 18 (9-52) IU/L Alkaline Phosphatase 133 H (38-126) U/L Total Creatine Kinase (30-135) U/L CK-MB (CK-2) CK-MB (CK-2) Rel Index Troponin I (0.01-0.034) ng/mL Total Protein 8.2 (6.3-8.2) g/dL Albumin 4.0 (3.5-5.0) g/dL Globulin 4.2 H (1.7-4.1) g/dL Albumin/Globulin Ratio 1.0 (1.0-2.8) Lipase 104 (23-300) U/L Blood Type Antibody Screen Urine Dip Bedside Urine Glucose Negative Bedside Urine Bilirubin - Negative Bedside Urine Ketone - Negative Urine Specific [place] 1.010 Bedside Urine Occult Blood - Negative Bedside Urine pH 7.0 Bedside Urine Protein - Negative Bedside Urine Urobilinogen - Negative Bedside Urine Nitrite - Negative Bedside Urine Leukocytes - Negative Esterase Discharge Plan Departure Patient Disposition: Admitted As Inpatient Clinical Impression: Pneumonia, Acute hypokalemia, Abdominal pain Discharge Date/Time: 07/15/18 19:59 Interventions: ED Discharge Assessment Last Done: 07/15/18 19:59 Admit Date/Time: 07/15/18 19:14 Admit Provider: Eldon Swanson
[2018-07-15 19:50] VITALS: BP 121/78; PULSE 86; RESP 20; TEMP 36.8; O2SAT 94
[2018-07-15 20:02] VITALS: BMI 18.3
[2018-07-15] MEDS: AZITHROMYCIN 500 MG in DEXTROSE 5% IN WATER 250 ML IV (21:49)
[2018-07-15] MEDS: SODIUM CHLORIDE 0.9% 1,000 ML 125 ML IV (21:52)
--- NOTE | 2018-07-15 22:51 | PC.NURSE ---
ADMIT Received pt at approximately 1950 via [employer], accompanied by spouse and ED RN. generalized weakness, 2PA to transfer to bed. pt with expressive aphasia from previous CVA but able to answer yes/no questions appropriately. pt prefers to defer to to answer questions regarding irina. reports pt's speech and generalized weakness has been getting progressively worse over the past few days. breath sounds diminished throughout, spO2 can be difficult to obtain due to pt's cold fingers. pt with occasional, moist, nonproductive cough. per 's report, pt occasionally winces from intermittent abdominal pain, warm blankets applied for comfort. telemetry and continuous o2 monitoring maintained. oriented pt to room. call light within reach.
[2018-07-15 23:50] VITALS: BP 122/68; PULSE 77; RESP 18; TEMP 36.7; O2SAT 96
[2018-07-15] MEDS: TRAMADOL 50 MG TABLET PO (23:50)
[2018-07-16 05:21] VITALS: BP 123/70; PULSE 88; RESP 19; TEMP 36.7; O2SAT 93
[2018-07-16 05:26] LABS: Add Manual Diff / Slide Review NO; Basophils Percent Auto 0.6 % (0-2); Eosinophils Percent Auto 7.3 % (2-4); Hematocrit 30.4 % (36-46); Hemoglobin 10.7 g/dL (12.0-16.0); Lymphocytes Percent Auto 20.1 % (25-40); Mean Corpuscular HGB Conc 35.2 % (30-36); Mean Corpuscular Hemoglobin 37.7 PG (26-34); Mean Corpuscular Volume 107.1 fL (80-100); Monocytes Percent Auto 10.5 % (3-14); Neutrophils Absolute Auto 3600 /uL (3000-5900); Neutrophils Percent Auto 61.5 % (50-75); Platelet Count 200 X10^3/uL (150-400); Red Blood Cell Count 2.83 X10^6/uL (4.0-5.2); Red Cell Distribution Width 13.8 % (11.6-14.8); White Blood Cell Count 5.9 X10^3/uL (4.5-11.0)
[2018-07-16 05:43] LABS: BUN Creatinine Ratio 15.7 (6-22); Blood Urea Nitrogen 11 mg/dL (7-17); Calcium 9.2 mg/dL (8.4-10.2); Carbon Dioxide 30 mmol/L (22-32); Chloride 107 mmol/L (98-107); Estimated Glomerular Filt Rate > 60.0 mL/min (>60); Glucose 95 mg/dL (80-110); HEMOLYSIS < 15 (0-50); Sodium 144 mmol/L (137-145)
[2018-07-16 05:56] LABS: Potassium 2.5 mmol/L (3.4-5.1)
[2018-07-16 08:00] VITALS: BP 140/78; PULSE 87; RESP 18; TEMP 36.9; O2SAT 96
[2018-07-16] MEDS: ACETAMINOPHEN 325 MG TABLET 975 MG PO ×3 (09:10→19:46)
[2018-07-16] MEDS: TRAMADOL 50 MG TABLET PO ×3 (09:11→19:45)
[2018-07-16] MEDS: POTASSIUM CHLORIDE 40 MEQ in SODIUM CHLORIDE 0.9% 500 ML 130 ML IV (09:59)
--- NOTE | 2018-07-16 11:17 | PC.NURSE ---
HR 140s/Telemetry a fib Call received from COMPUTER METEOROLOGIST Bal reporting patient HR jumping into 140s, rhythm showing a fib. Dr. Swanson made aware of change. Patient in no acute distress upon physical check. VSS.
[2018-07-16 11:30] VITALS: BP 109/67; PULSE 104; RESP 20; TEMP 36.8; O2SAT 94
--- NOTE | 2018-07-16 13:00 | CM.DANOTE ---
DCP: Assessment Review chart and met with and role of nurse discharge planner explained. Patient is a 72 year old female who came to the ER for increasing weakness and confusion. She was found to have a low potassium and pneumonia. PCP: Dr. Shruthi Lewis Insurance: Medicare and Stand [facility] Patient has a history of CVA about 1 1/2 years ago and she still has residual weakness and speech impairment. She lives with her in [place] in a single level home. Her sister lives next door. is her primary caregiver. She has no history of HH or SNF. She does not use any devices for walking but she does have a walker that although encourage to use she does not. She should have a PT evaluation when appropriate. Plan: Likely home with . Ashley Auguste RN
--- NOTE | 2018-07-16 13:46 | PM.HP.1 ---
History of Present Illness Date Patient Seen: 07/16/18 Chief complaint: CONFUSION Narrative: This is a 72-year-old female, who lives at her home in [place] with her , who presents with 2 months of diminishing ability to balance, with 2 weeks of diminishing eating and appetite, finally prompting a visit to the emergency department last night where she was diagnosed with pneumonia and severe obstipation causing stercoral colitis. Her baseline is atrial fibrillation with stroke effect causing expressive aphasia after a stroke 1 and half years ago. She has had no fevers, coughing, shortness of breath, chest pain, vomiting, abdominal pain or other clues as to what was going on with her symptoms. She was admitted for treatment of the obstipation, the pneumonia and her generalized weakness/lack of appetite and significant hypokalemia. The potassium is 2.5. Patient History Medical History Atrial fibrillation (Acute) CVA (cerebral vascular accident) (Acute) Expressive aphasia (Acute) Comment: She is not able to give any history. Family & Social History Family History: Reviewed 07/16/18 by Eldon Swanson MD Family history unavailable: Yes Social History: household members spouse Prior Living Arrangements House Safety & Behavioral: Feels Safe in Current Yes Environment Been Physically Hurt or No Threatened By a Person Suicidal Ideation Description None Suicide Plan Description No Plan Tobacco & Substance use: Smoking Status Never smoker alcohol intake current alcohol intake frequency holiday/special occasion Substance Use Type does not use Meds Home Medications Medication Instructions Recorded Confirmed Type alprazolam [Xanax XR] 0.5 mg PO BID PRN #0 01/11/17 07/15/18 History tramadol 50 mg PO TID PRN #0 01/11/17 07/15/18 History dabigatran etexilate [Pradaxa] 150 mg PO BID #60 cap 01/15/17 07/15/18 Rx diltiazem HCl 240 mg PO QDAY #30 cap 01/15/17 07/15/18 Rx metoprolol tartrate 50 mg PO BID #60 tab 01/15/17 07/15/18 Rx Allergies Allergy/AdvReac Type Severity Reaction Status Date / Time metronidazole [From Flagyl] Allergy Severe Anaphylaxis Verified 07/15/18 22:02 Review of Systems Review of Systems According to her there has been no fever, vomiting, cough, chest pain, abdominal pain, bleeding, rashes, seizures. She has had difficulty with balance and a diminishing appetite. unobtainable due to mental status Exam Vital Signs (past 8 hours): - 07/16/18 08:00 07/16/18 11:30 Temperature 98.5 F 98.2 F Pulse Rate 87 104 H Respiratory Rate 18 20 Blood Pressure 140/78 109/67 Pulse Oximetry 96 94 Oxygen Delivery Method Room Air Oxygen Flow Rate 0 Narrative Exam Narrative: She appears to be oriented to her name at least. She is quite alert. Her voice is soft, tremulous, word searching. Pupils are equally round and reactive to light and accommodation. Sclerae are pink and nonicteric. Extraocular muscles are intact. No lymph nodes are felt head, neck, supraclavicular area. There is no thyromegaly. There is no significant JVD. There are no carotid bruits heard. Heart is irregularly irregular without murmur. Lungs have right-sided crackles. Abdomen is soft, bowel sounds positive, nontender, no organomegaly. Extremities have no ankle edema. Neuro exam. She has symmetric wrist release of information clerk strength. Motor function in lower extremities similarly symmetric. I did not test balance and gait. Cranial nerves 2-12 tested intact. Tongue protrudes midline. There is no tremor. She is struggling to articulate. Objective Labs Result Diagrams: 07/16/18 05:01 07/16/18 05:01 Labs: Laboratory Results - last 24 hr 07/15/18 07/15/18 07/15/18 16:51 16:51 16:51 WBC 6.1 RBC 3.04 L Hgb 12.0 Hct 34.0 L MCV 112.1 H MCH 39.6 H MCHC 35.3 RDW 13.7 Plt Count 249 Neut % (Auto) 73.0 Lymph % (Auto) 14.2 L [place] % (Auto) 6.9 Eos % (Auto) 5.2 H Baso % (Auto) 0.7 Neut # (Auto) 4400 RBC Morphology Normal morphology Sodium Potassium Chloride Carbon Dioxide BUN Creatinine Estimated GFR BUN/Creatinine Ratio Glucose Calcium Total Bilirubin AST ALT Alkaline Phosphatase Total Creatine Kinase 26 L CK-MB (CK-2) TNP CK-MB (CK-2) Rel Index TNP Troponin I 0.014 Total Protein Albumin Globulin Albumin/Globulin Ratio Lipase Blood Type O Positive Antibody Screen Negative 07/15/18 07/16/18 07/16/18 16:51 05:01 05:01 WBC 5.9 RBC 2.83 L Hgb 10.7 L Hct 30.4 L MCV 107.1 H D MCH 37.7 H MCHC 35.2 RDW 13.8 Plt Count 200 Neut % (Auto) 61.5 Lymph % (Auto) 20.1 L [place] % (Auto) 10.5 Eos % (Auto) 7.3 H Baso % (Auto) 0.6 Neut # (Auto) 3600 RBC Morphology Sodium 142 144 Potassium 2.6 L* 2.5 L* Chloride 98 107 Carbon Dioxide 28 30 BUN 15 11 Creatinine 0.90 0.70 Estimated GFR > 60.0 > 60.0 BUN/Creatinine Ratio 16.7 15.7 Glucose 163 H 95 Calcium 10.7 H 9.2 Total Bilirubin 0.8 AST 48 H ALT 18 Alkaline Phosphatase 133 H Total Creatine Kinase CK-MB (CK-2) CK-MB (CK-2) Rel Index Troponin I Total Protein 8.2 Albumin 4.0 Globulin 4.2 H Albumin/Globulin Ratio 1.0 Lipase 104 Blood [place] [address] CT Scan Report Signed Patient: Elisha Shultz MR#: [id number] : 1945 Acct:[id number] Age/Sex: 72 / F Date of Service: 07/15/18 Loc: ED Accession Number: [id number] Procedure: CT chest abd pel w con Ordering Provider: Nury Callejas D.O. PROCEDURE: CT CHEST ABD PEL W CON INDICATIONS: lower abdominal pain, ? pnuemonia, weakness TECHNIQUE: After the administration of intravenous contrast, 5 mm thick sections acquired from the lung apices to the symphysis. 5 mm coronal and sagittal reformats were performed, with additional 7 mm MIP reformats through the lungs. For radiation dose reduction, the following was used: automated exposure control, adjustment of mA and/or kV according to patient size. COMPARISON: [facility], , CHEST 2 VIEW, 12/04/2017, 10:41. [facility], , XR ACUTE ABDOMEN SERIES, 07/15/2018, 17:13. FINDINGS: Image quality: Excellent. CHEST: Lungs and pleura: Patchy consolidation noted in the right lung compatible with multilobar pneumonia. Left lung is clear of acute opacities. Trace right-sided pleural effusion noted. No pneumothorax. Central and peripheral airways appear patent and normal in caliber. Mediastinum: Heart size is enlarged. No pericardial effusion. No mediastinal or hilar adenopathy by size criteria. Thoracic aorta and central pulmonary arteries are normal in size. Esophagus is normal in caliber. No hiatal hernia. Chest wall: No axillary or supraclavicular adenopathy by size criteria. ABDOMEN: Solid organs: Liver is normal in size and enhancement. Gallbladder is within normal limits. Biliary system is non dilated. Pancreas enhances normally. Spleen is normal in size and enhancement. No adrenal nodules. Kidneys demonstrate normal size and enhancement, without hydronephrosis. Peritoneum and bowel: Moderate amount of stool noted in the right colon. Large amount of stool noted in the rectum. There is mild, diffuse rectal wall thickening with adjacent mild inflammatory changes. No free air. Trace free fluid noted in the presacral pelvis. The appendix is not definitely visualized. Nodes and vessels: No retroperitoneal or mesenteric adenopathy by size criteria. Aorta and inferior vena cava are normal in size. Scattered atherosclerotic calcifications are noted in the abdominal and pelvic vasculature. Miscellaneous: No ventral hernias. PELVIS: Genitourinary: Bladder wall thickness is normal. Miscellaneous: No inguinal hernias or adenopathy. Bones: No suspicious bony lesions. Chronic appearing L1 and L3 compression fractures. Postsurgical changes compatible with ORIF of right clavicle fracture noted. Chronic appearing anterior right second and third rib fractures are noted. Spine degenerative disease and facet arthropathy noted. IMPRESSION: 1. Right lung multilobar pneumonia. 2. Stercoral proctitis with rectal fecal impaction. Recommend close clinical observation to exclude developing stercoral ulcer. 3. Trace free fluid in the presacral pelvis likely related to adjacent proctitis. No fringe peritoneal air 4. Cardiomegaly. 5. Appendix is not definitely visualized. Early manifestation appendicitis cannot be excluded. Dictated by: Adelina Cabello MD, PhD on 07/15/2018 at 18:05 Assessment & Plan (1) Atrial fibrillation: Problem details: Continue diltiazem, metoprolol and Pradaxa. No current symptoms. Current visit: Yes Status: Acute (2) Atrial fibrillation with RVR: Problem details: Continue diltiazem, metoprolol and Pradaxa. No current symptoms. Current visit: No Status: Acute (3) Pneumonia: Problem details: Continue Rocephin and azithromycin IV. Qualifiers: Aspiration pneumonia type: Laterality: bilateral Lung location: unspecified part of lung Pneumonia type: due to unspecified organism Qualified Code(s): J18.9 - Pneumonia, unspecified organism Current visit: Yes Status: Acute (4) CVA (cerebral vascular accident): Problem details: Continue current risk factor modification for future stroke. No indication for further imaging at this time. Current visit: No Status: Acute (5) Expressive aphasia: Problem details: This appears to be stable. Current visit: Yes Status: Acute (6) Hypokalemia: Problem details: Additional potassium is being given today and the level will be repeated tomorrow. It is unclear, other than malnourishment and diminished oral intake why this was low. Current visit: Yes Status: Acute (7) Stercoral ulcer of rectum: Problem details: At this point the CT scan is suggesting that the actual stercoral ulcer has not developed yet. She will be given appropriate stool mobilization interventions. Current visit: Yes Status: Acute Quality VTE Deep Vein Thrombosis/Pulmonary Embolism Present on Admission: No
[2018-07-16] MEDS: SODIUM CHLORIDE 0.9% 1,000 ML 125 ML IV (15:07)
[2018-07-16] MEDS: MAGNESIUM CITRATE 300 ML SOLUTION 150 ML PO (15:09)
[2018-07-16] MEDS: METOPROLOL IR 50 MG TABLET PO ×2 (15:11→19:48)
[2018-07-16] MEDS: dilTIAZem CD 240 MG CAP PO (15:11)
[2018-07-16 15:40] VITALS: BP 127/69; PULSE 108; RESP 18; TEMP 36.8; O2SAT 96
[2018-07-16] MEDS: CEFTRIAXONE 1 GM/50 ML FROZ.PIGGY IV (18:05)
--- NOTE | 2018-07-16 18:23 | PC.NURSE ---
SHIFT NOTE expressive aphasia ue to previous CVA but able to answer yes/no questions appropriately. pt with intermittent abdominal pain, had just received mag citrate at change of shift. pt with 2 BMs thus far, soft and brown. warm blanket applied for comfort. tele maintained. HR labile, 90-110's at rest and up to 140-150's with activity although not sustained. requires 2P mod assist to transfer to BSC. at bedside. bed alarm for safety. call light within reach.
[2018-07-16] MEDS: AZITHROMYCIN 500 MG in DEXTROSE 5% IN WATER 250 ML IV (18:55)
[2018-07-16 19:20] VITALS: BP 122/67; PULSE 78; RESP 20; TEMP 36.7; O2SAT 93
[2018-07-16] MEDS: ALPRAZolam 0.5 MG TABLET PO (19:45)
[2018-07-16] MEDS: DABIGATRAN 75 MG CAPSULE 150 MG PO (19:48)
[2018-07-16 23:57] VITALS: BP 121/75; PULSE 76; RESP 17; TEMP 36.6; O2SAT 92
[2018-07-17] VITALS (11 sets, daily range): BP systolic 107–125; BP diastolic 69–87; PULSE 87–95; RESP 20–28; TEMP 36.7–37.1; O2SAT 86–100; BMI 18.3
--- NOTE | 2018-07-17 | DI.RAD.S_ITS ---
PROCEDURE: XR CHEST 1V INDICATIONS: Shortness of breath TECHNIQUE: One view of the chest was acquired. COMPARISON: [facility], , CHEST 2 VIEW, 12/04/2017, 10:41. FINDINGS: Surgical changes and devices: Patient is status post prior internal fixation of right clavicle. No gross hardware loosening or failure. Lungs and pleura: Ill-defined airspace opacities are noted scattered in the right mid to lower lung cotton suggestive of patchy right sided pulmonary infiltrates. No significant pleural effusion. Chronic emphysematous changes are seen. No gross pneumothorax. Mediastinum: Mediastinal contours appear normal. Heart size is enlarged. Bones and chest wall: No suspicious bony lesions. Overlying soft tissues appear unremarkable. IMPRESSION: Patchy airspace opacity in right mid to lower lung field suggestive of right-sided patchy infiltrates. COPD. No significant pleural effusion no gross pneumothorax. Dictated by: Henrique Moscoso M.D. on 07/17/2018 at 8:56 Approved by: Henrique Moscoso M.D. on 07/17/2018 at 8:58
[2018-07-17] MEDS: SODIUM CHLORIDE 0.9% 1,000 ML 125 ML IV (00:42)
--- NOTE | 2018-07-17 06:00 | PC.NURSE ---
Pt is A and O x 4, VSS. She continues to be incontinent of bladder, voiding qs by brief count. + BTs. She denied pain this shift. LS clear, HR irregular irr. Pt able to sleep most of shift.
[2018-07-17 07:00] LABS: BUN Creatinine Ratio 18.3 (6-22); Blood Urea Nitrogen 11 mg/dL (7-17); Calcium 8.8 mg/dL (8.4-10.2); Carbon Dioxide 28 mmol/L (22-32); Chloride 107 mmol/L (98-107); Estimated Glomerular Filt Rate > 60.0 mL/min (>60); Glucose 104 mg/dL (80-110); HEMOLYSIS < 15 (0-50); Potassium 3.2 mmol/L (3.4-5.1); Sodium 146 mmol/L (137-145)
[2018-07-17] MEDS: FUROSEMIDE 40 MG/4 ML VIAL IV (08:50)
[2018-07-17 08:54] LABS: Fractionated Inspired Oxygen 28; HCO3 ABG 25 mmol/L (22-26); Oxygen Saturation ABG 94 % (95-100); PCO2 ABG 36.9 mmHg (35-45); PO2 ABG 68 mmHg (80-100); TCO2 ABG 26 mmol/L (21-31); pH ABG 7.43 (7.35-7.45)
[2018-07-17] MEDS: DEXTROSE 5%-0.45NS W/KCL 20MEQ 1,000 ML 40 MEQ IV (08:54)
[2018-07-17] MEDS: dilTIAZem CD 240 MG CAP PO (08:59)
[2018-07-17] MEDS: DABIGATRAN 75 MG CAPSULE 150 MG PO ×2 (08:59→21:25)
[2018-07-17] MEDS: METOPROLOL IR 50 MG TABLET PO ×2 (08:59→21:25)
--- NOTE | 2018-07-17 09:09 | PC.NURSE ---
PATIENT SOB AT REST WHEN THIS NURSE CAME ON SHIFT W/ SAT 85-88% ON RA, RR 28. DENIES SOB BUT IS OBVIOUSLY DYSPNIC IN MILD DISTRESS. 2L/NC ADMINISTERED W/ IMPROVEMENT OF SAT TO 95%. MD NOTIFIED OF RESPIRATORY STATUS CHANGES, AND K+ 3.2 UP FROM 2.5 YESTERDAY. SEE NEW ORDERS FOR CXR, ABG, IVF ORDER CHANGE AND LASIX.
--- NOTE | 2018-07-17 09:52 | CM.DPC ---
DCP Cont: Met with patient briefly, introduced self and role. Pleasant, but non-verbal. Discussed patient with nurse, Becky. Stated that patient could use a respiratory therapy consult. Also, patient could benefit with physical and occupational therapy as well. Discussed this during rounds, and hospitalist is giving verbal for these consultations. Put orders in. P: DCP to continue to follow closely. is primary caregiver at home. Plan is for her to return home when stable. Ladan Chery RN/[employer] Administrator
--- NOTE | 2018-07-17 11:05 | PT.IPTN ---
Current Diagnoses Hypokalemia (07/15/18) Unspecified atrial fibrillation (07/15/18) Cerebral infarction, unspecified (07/15/18) Pneumonia, unspecified organism (07/15/18) Ulcer of anus and rectum (07/15/18) Aphasia (07/15/18) Physical Therapy Treatment Note Patient Comments Pt reports being tired and doesn't want to participate in therapy right now. Pt willing to try in hte afternoon. Will return as care and schedule allows.
--- NOTE | 2018-07-17 11:08 | OT.IP.TRT ---
Current Diagnoses Hypokalemia (07/15/18) Unspecified atrial fibrillation (07/15/18) Cerebral infarction, unspecified (07/15/18) Pneumonia, unspecified organism (07/15/18) Ulcer of anus and rectum (07/15/18) Aphasia (07/15/18) Occupational Therapy Treatment Note M3 OT- IP Subjective and Pain Start: 07/17/18 11:03 Freq: Status: Active Protocol: Document 07/17/18 11:04 [facility] (Rec: 07/17/18 11:08 [facility] [id number]) OT- Subjective Occupational Therapy Visit Type Type Patient Refusal Notes Pt has expressive aphasia and able to nod her head no when asked if she wanted to get up for OT eval. It was determined through options and gave pt communication board that she would like to do OT eval later in afternoon as too tired at this time. Spoke to nursing and that pt would benefit from FUNERAL LOCATION MANAGER eval and treat.
[2018-07-17] MEDS: MAGNESIUM SULFATE 1 GM in DEXTROSE 5 % IN WATER 100 ML 102 ML IV (11:46)
[2018-07-17] MEDS: POTASSIUM CHLORIDE 20 MEQ TAB 40 MEQ PO (11:47)
--- NOTE | 2018-07-17 12:15 | CM.DPC ---
DCP Cont: Met with patient's , his name is Ravi, but likes to be called Surinder. is very supportive. Lives in [place]. Let know that patient would be working with physical therapy as well. is hopeful that they can get her a walker, for she has not wanted to use one. Let him know that respiratory therapy would also be consulting, and speech as well, for patient is limited on her speech. stated, she has history of stroke Patient and have a son in [place] named Mitul. Stated that he is looking for a facility for them in the area, that can also meet medical needs. They are planning to move to [place] in August. Also stated that patient's sister lives next to them as well. P: DCP to continue to follow closely. Plan is for patient to return home when stable. does not feel that home health is needed, for this question was posed. Ladan Chery RN/Plastic Molding Operator
--- NOTE | 2018-07-17 13:25 | PT.IIE ---
Addendum entered and electronically signed by Doris Salinas, PT 07/17/18 15:45: I certify I directly supervised and guided this session. R Irais Salinas DPT Original Note: Current Diagnoses Hypokalemia (07/15/18) Unspecified atrial fibrillation (07/15/18) Cerebral infarction, unspecified (07/15/18) Pneumonia, unspecified organism (07/15/18) Ulcer of anus and rectum (07/15/18) Aphasia (07/15/18) Medical History (Last Updated 07/16/18 @ 17:09 by Eldon Swanson MD) Atrial fibrillation (Acute) CVA (cerebral vascular accident) (Acute) Expressive aphasia (Acute) Physical Therapy Inpatient Evaluation/Re-Eval M1 PT/OT-IP Prior Functional Status Start: 07/17/18 11:03 Freq: NEEDED Status: Active Protocol: Document 07/17/18 13:25 (Rec: 07/17/18 15:39 [id number]) Medical Review Prior Functional Status Medical History Reviewed Yes Communication Pt known to have expressive aphasia. Her Skip is present for session to assist with PLOF and environmental details as below . Pt responds appropriately to yes/no questions. Mobility and Gait Pt previously modified independent ambulation; using no AD most of the time, however leans on shopping cart to complete shopping. Activities of Daily Living and IADL's Indep with dressing, showering , toileting. Her does all the cooking, cleaning and batch maker. Prior Functional Level (Other details) Balance problems are reported, but no falls. Social History Household Members spouse Living Arrangements House Number of Floors (Floors) One Floor Number of Stairs To Enter/Railing? No steps to enter Home Environment Standard Height Toilet Tub/Shower Home Equipment Grab Bars In Shower Employment Status Retired Additional Social History Comment Pt can push from counter/sink on L side when ascending from toilet Her would like her to use a walker to walk M2 PT-IP Current Condition Start: 07/17/18 10:49 Freq: NEEDED Status: Active Protocol: Document 07/17/18 13:25 (Rec: 07/17/18 15:34 [id number]) Physical Therapy Current Condition Current Condition Evaluation Date 07/17/18 Treatment Diagnosis Pneumonia; Generalized weakness Onset Date 07/15/18 Precautions Other Precautions Monitor 02 M3 PT-IP Subjective Start: 07/17/18 10:49 Freq: NEEDED Status: Active Protocol: Document 07/17/18 13:25 (Rec: 07/17/18 15:34 [id number]) Subjective Physical Therapy Visit Type Type Initial Evaluation Visit Start Time 13:25 Visit Stop Time 15:10 Total Visit Minutes 42 Notes Co eval with OT Number of RADIATOR REPAIRER Visits 0 Physical Therapy Visit Comments Patient Comments Pt agreeable to mobilize with PT Patient Goals Pt wants to go home with spouse at d/c M4 PT-IP Mobility and Gait Start: 07/17/18 10:49 Freq: NEEDED Status: Active Protocol: Document 07/17/18 13:25 (Rec: 07/17/18 15:34 [id number]) PT-Bed Mobility Assessment Supine to Sit Supine to Sit Maximum Assistance 1 Person Assistance Scooting Scooting to Edge of Bed Maximum Assistance PT-Transfer Assessment Sit to and From Stand Sit to and from Stand Maximum Assistance 1 Person Assistance 2 Person Assistance Use of Upper Extremities Equipment Transfer Assistive Device None Gait Belt Front Wheeled Walker Orthotic/Prosthetic Devices or Brace: No Transfers Transfer Destination Chair Transfer Technique Stand Step Pivot Transfer Ability Level of Assist Maximum Assistance 1 Person Assistance Use of Upper Extremities Comments Mobility Comments Resting supine/HOB elevated BP 104/54, HR 72, O2 94% on 2L. Supine > sit requires maxAx1 with verbal/tactile cues, pt does participate and uses BUE heavily. Desaturation to 89% sitting EOB is noted, pt cued for deep breathing and rests EOB 1-2 mins. O2 sat improves to 93% prior to attempting transfer to chair. 1st and 2nd attempts to sit > stand with fww require maxAx2 with max verbal and tactile cues, and pt unable to stand fully erect. 3rd attempt to stand using no AD requires maxAx1 min cues, and [id number] is completed, although pt unable to stand fully erect. Seated/post transfer bBP 102/ 69, HR 79, O2 94%. Pt positioned in recliner, call light in reach. M5 PT-IP Objective Assessments Start: 07/17/18 10:49 Freq: NEEDED Status: Active Protocol: Document 07/17/18 13:25 (Rec: 07/17/18 15:34 [id number]) Orientation Orientation/Cognition Level of Alertness Alert Language Function Ability Expressive Aphagia Comments Pt responds to yes/no questions well. Gross Range of Motion Lower Extremity ROM Assessment Within Functional Limits Strength Lower Extremity Strength Assessment Bilaterally Impaired Hip 3+ Knee 3+ Ankle 3+ Comments Strength Comments Pt fatigues very easily. M6 PT-IP Treatment Start: 07/17/18 10:49 Freq: NEEDED Status: Active Protocol: Document 07/17/18 13:25 (Rec: 07/17/18 15:34 [id number]) Physical Therapy Treatment Exercises Exercises Ankle Pumps Short Arc Quads Education Education Provided Safety Other Treatments Other Treatment Performed 5X short arc quad sets, 5 sec holds. Pt legs shaking with effort on last rep. Ankle pumps X20. Pt asked to do quad sets when waiting for meals while in hospital. She agreed. M7 PT-IP Assessment and Plan Start: 07/17/18 10:49 Freq: NEEDED Status: Active Protocol: Document 07/17/18 13:25 (Rec: 07/17/18 15:34 [id number]) PT Summary Assessment and Plan Potential Rehabilitation Potential Good Status of Condition at Evaluation Evolving Summary Impairments Strength Balance Cognition Bed Mobility Transfers Gait Activity Tolerance Assessment Summary Pt admitted for pneumonia has generalized weakness and decreased activity tolerances. Requiring 1-2 person max assist with bed mobility and [id number] to chair. Pt 02 desaturates with very little activity despite 2L 02 supplement. At this time d/c recommendation is for SNF vs home with 24/7 assist and HH. If pt were to d/c to home, pt would need to progress activity tolerances including short distance ambulation and her would need to safely demonstrate assist with bed mobility and transfers. Goals Bed Mobility Goal Contact Guard Assistance Transfer Goal Minimal Assistance Front Wheeled Walker Gait Goal Minimal Assistance Front Wheel Walker Gait Distance 100 Other Goals Pt will ambulate 100 ft using fww or least restrictive AD ( pt usually ambulates with no AD, however her family has encouraged her to use a walker ). Days to Meet Goals 5 Frequency of Treatment Frequency Of Treatment Once a Day Treatment Plan Physical Therapy Treatment Plan Bed Mobility Training Transfer Training Gait Training Therapeutic Exercise Balance Retraining Discharge Planning Hot or Cold Pack Neuromuscular Re-ed Coordination Retraining Manual Therapy Other Recommendations and Next Treatment Progress pt ambulation as Focus appropriate. Funcitonal strengthening Recommendations To Nursing Amount of Assist Needed 2 Person Assist Discharge Recommendations PT Discharge Recommendations Home with 24/7 Assist Home Health SNF Rehab Other Discharge Recommendations SNF vs Home with 24/7 and HH Equipment Needed for Home Before fww pending pt status Discharge
[2018-07-17] MEDS: ALBUTEROL 2.5 MG/3 ML NEB (ADULT) INH ×2 (13:49→17:17)
--- NOTE | 2018-07-17 14:39 | PM.PN.1 ---
Subjective Date Patient Seen: 07/17/18 Time Patient Seen: 10:20 Interval history: PATIENT HAS DIFFICULTY WITH COMMUNICATION DUE TO PRIOR STROKE HOWEVER WHEN ASKED, SHE DENIED ANY CHEST PAIN. SHE DID REPORT THE SHORTNESS OF BREATH WELL DYSPNEA ON EXERTION SPOKE TO PATIENT'S AT BEDSIDE QUESTIONS AND CONCERNS ADDRESSED. NO SIGNIFICANT ISSUES OVERNIGHT SPOKE TO NURSING ABOUT THE CASE Exam Vital Signs (past 8 hours): - 07/17/18 07:40 07/17/18 08:00 07/17/18 09:20 Temperature 98.3 F Pulse Rate 88 Respiratory Rate 20 28 H Blood Pressure 125/85 Pulse Oximetry 90 L 95 95 07/17/18 09:21 07/17/18 11:49 07/17/18 13:57 Temperature 98.4 F Pulse Rate 95 H Respiratory Rate 26 H Blood Pressure 123/87 Pulse Oximetry 93 99 100 Oxygen Delivery Method Nasal Cannula Oxygen Flow Rate 2 Narrative Exam Narrative: NO ACUTE DISTRESS. PATIENT IS ALERT ORIENTED X2. THIN; HEAD ATRAUMATIC NORMOCEPHALIC NECK : SUPPLE WITHOUT ADENOPATHY EYE: EOMI, PERRLA, NORMAL CONJUNCTIVA CHEST: REGULAR RATE.. NO RUBS. PMI IS NON DISPLACED. NO MURMURS PULMONARY: DECREASED BS OVER THE BASES. MILD BIBASILAR CRACKLES NOTED; NO INCREASED DULLNESS TO PERCUSSION ABDOMINAL: SOFT NONTENDER. BOWEL SOUNDS PRESENT ALL 4 QUADRANTS. NO ORGANOMEGALY. NO MASS. NO GUARDING. EXTREMITIES: NO EDEMA. . NO CYANOSIS CLUBBING NOTED. NEURO: FOCAL NEUROLOGICAL DEFICIT NOTED FROM PRIOR CVA. NO NEW DEFICIT. DIFFICULTY WITH SPEECH MSK: NORMAL RANGE OF MOTION FOR AGE. NO JOINT EFFUSION. SKIN: NORMAL FOR ETHNICITY; NO ECCHYMOSIS. NO LESION. GOOD TURGOR.; NORASHES : NORMAL EXTERNAL GENITALIA. PSYCH : CALM AND COOPERATIVE; ALERT AWAKE ORIENTED X2 Objective Labs Result Diagrams: 07/16/18 05:01 07/17/18 06:38 Labs: Laboratory Results - last 24 hr 07/17/18 07/17/18 06:38 08:42 ABG pH 7.43 ABG pCO2 36.9 ABG pO2 68 L ABG HCO3 25 ABG Total CO2 26 ABG O2 Saturation 94 L ABG Base Excess 0.0 FiO2 28 Sodium 146 H Potassium 3.2 L Chloride 107 Carbon Dioxide 28 BUN 11 Creatinine 0.60 Estimated GFR > 60.0 BUN/Creatinine Ratio 18.3 Glucose 104 Calcium 8.8 Assessment & Plan Plan: Assessment/Plan Narrative: IMPRESSION AND PLAN ACUTE COPD EXACERBATION. PATIENT WILL BE STARTED ON STEROID TODAY. PATIENT ALSO WILL BE CONTINUING ANTIBIOTICS. DUONEB TREATMENTS ORDERED. RESPIRATORY THERAPY CONSULTED. CONTINUOUS PULSE OX INDICATED. SERIAL CHEST X-RAY AND ABG TO FOLLOW COMMUNITY-ACQUIRED PNEUMONIA VERSUS ASPIRATION PNEUMONIA DUE TO MICROASPIRATION. CONTINUE CURRENT ANTIBIOTICS. REPEAT CHEST X-RAY ORDERED TO FOLLOW PRIOR CVA. SIGNIFICANT NEURO DEFICIT. FALL PRECAUTION. ASPIRATION PRECAUTIONS. PT OT. HYPERNATREMIA. SECONDARY TO DEHYDRATION. CONTINUE GENTLE REHYDRATION WITH IV FLUIDS FOR NOW ; TREAT INDICATED ANEMIA. MACROCYTOSIS NOTED. WE WILL GET B12 AND FOLATE. TREAT INDICATED HYPOKALEMIA. PATIENT WILL BE GIVEN MAGNESIUM TODAY. ADDITIONAL POTASSIUM WILL BE GIVEN IV THEN ORALLY WELL. REPEAT LABS IN THE MORNING PHYSICAL DECONDITIONING. MULTIFACTORIAL. PT OT ORDERED DIFFICULTY WITH SPEECH. SPEECH THERAPY CONSULTED DYSPHAGIA. SPEECH THERAPY CONSULT IS RO ASPIRATION PRECAUTION. SERIAL LAB TO FOLLOW ASPIRATION AND FALL PRECAUTION CONTINUE GENTLE IV FLUIDS FOR NOW ENCOURAGE P.O. FLUID INTAKE PROGNOSIS IS GUARDED ADDITIONAL MANAGEMENT CLINICALLY DISCHARGE ABX IN NEXT 24-48 HOURS Quality VTE Deep Vein Thrombosis/Pulmonary Embolism Present on Admission: No
--- NOTE | 2018-07-17 14:57 | SLP.IPNOTE ---
Attempted to see patient for speech evaluation; however, patient care was being provided. OT/PT in now to evaluate patient. Will collaborate with staff to best assist patient and her communication needs in this setting. Re-attempt evaluation tomorrow 07/18.
--- NOTE | 2018-07-17 17:04 | OT.IP.EVAL ---
Current Diagnoses Hypokalemia (07/15/18) Unspecified atrial fibrillation (07/15/18) Cerebral infarction, unspecified (07/15/18) Pneumonia, unspecified organism (07/15/18) Ulcer of anus and rectum (07/15/18) Aphasia (07/15/18) Past Medical History (Last Updated 07/16/18 @ 17:09 by Eldon Swanson MD) Atrial fibrillation (Acute) CVA (cerebral vascular accident) (Acute) Expressive aphasia (Acute) Occupational Therapy Inpatient Evaluation/Re-Eval M1 PT/OT-IP Prior Functional Status Start: 07/17/18 11:03 Freq: NEEDED Status: Active Protocol: Document 07/17/18 16:28 [facility] (Rec: 07/17/18 17:03 [facility] [id number]) Medical Review Prior Functional Status Medical History Reviewed Yes Communication Pt known to have expressive aphasia. Her Skip is present for session to assist with PLOF and environmental details as below . Pt responds appropriately to yes/no questions. Mobility and Gait Pt previously modified independent ambulation; using no AD most of the time, however leans on shopping cart to complete shopping. Pt's states hold onto her while walking. Activities of Daily Living and IADL's Indep with dressing, showering , toileting. Her does all the cooking, cleaning, bills, medications, and lighting engineering technician. Prior Functional Level (Other details) Balance problems are reported, but no falls. Social History Household Members spouse Living Arrangements House Number of Floors (Floors) One Floor Number of Stairs To Enter/Railing? No steps to enter Home Environment Standard Height Toilet Tub/Shower Home Equipment Grab Bars In Shower Employment Status Retired Additional Social History Comment Pt can push from counter/sink on L side when ascending from toilet Her would like her to use a walker to walk M2 OT-IP Current Condition Start: 07/17/18 11:03 Freq: Status: Active Protocol: Document 07/17/18 16:28 [facility] (Rec: 07/17/18 17:03 [facility] [email or web address]) Occupational Therapy Current Condition Current Condition Evaluation Date 07/17/18 Treatment Diagnosis PNA, weakness Diagnosis Onset Date 07/15/18 Post Operative Precautions Other Precautions Monitor 02 currently on 2L. M3 OT- IP Subjective and Pain Start: 07/17/18 11:03 Freq: Status: Active Protocol: Document 07/17/18 16:28 [facility] (Rec: 07/17/18 17:03 [facility] [email or web address]) OT- Subjective Occupational Therapy Visit Type Type Initial Evaluation Visit Start Time 14:40 Visit Stop Time 15:10 Total Visit Minutes 40 Notes Also seen from 1325 to 1335. Pt has expressive aphasia and mostly does not speak and will nod her head yes or no for questions asked. Pt's , Skip present and able to mostly guess what she needs. Occupational Therapy Visit Comments Patient Comments After much encouragement , pt agreeable to get up. Patient/Caregiver Goals would like her to get stronger and be able to do things for herself so that she can go home. When presented pt the idea of skilled rehab, pt nodding her head adamantly for no. OT Pain Assessment Pain When Pain Assessed At Rest Pain Present Pain Present Denied Pain M4 OT- IP ADL's Start: 07/17/18 11:03 Freq: Status: Active Protocol: Document 07/17/18 16:28 [facility] (Rec: 07/17/18 17:03 [facility] [id number]) OT ADL-Dressing General Eval Lower Body Dressing Ability Standby Assistance Maximum Assistance Areas Needing Assistance Retrieving/Set-up of Clothing Comments OT Dressing Comments Pt able to alexander socks while supine in the bed. However at this time would be unable to pull up brief/pants while standing as needing MAX A X 1- 2 for stand pivot transfer at this time. M5 OT- IP IADL's Start: 07/17/18 11:03 Freq: Status: Active Protocol: Document 07/17/18 16:28 [facility] (Rec: 07/17/18 17:03 [facility] [email or web address]) OT-Instrumental Activities of Daily Living Medication Management Medication Management Caregiver Administers Money Management Money Management Caregiver Provides Assistance Meal Preparation Meal Preparation Caregiver Provides Assist Truss Designer Truss Designer Caregiver Provides Assist Driving Driving Caregiver Provides Assist M6 OT- IP Functional Cognition Start: 07/17/18 11:03 Freq: Status: Active Protocol: Document 07/17/18 16:28 [facility] (Rec: 07/17/18 17:03 [facility] [email or web address]) Cognitive Factors Limiting Selfcare Function Cognitive Ability Level of Alertness Alert Confusional State Patient Orientation Name Attention Span Ability Capable of Focused Attention Unable to Sustain Attention Ability to Follow Commands Able to Follow One Step Commands with Increased Time Able to Follow One Step Commands with Repetition Memory Description Short Term Impaired Problem Solving Ability Unable to Identify Errors Needs Assist to Identify Solutions Cognitive Comments Cognitive Assessment Comments Pt has expressive aphasia and able to answer yes/no questions consistently. M7 OT- IP Mobility and Balance Start: 07/17/18 11:03 Freq: Status: Active Protocol: Document 07/17/18 16:28 [facility] (Rec: 07/17/18 17:03 [facility] [email or web address]) OT- Bed Mobility Assessment Rolling Type of Rolling Roll to Right Level of Assistance Maximum Assistance Supine to Sit Supine to Sit Assist Maximum Assistance Scooting Scooting to Edge of Bed Maximum Assistance OT-Transfer Assessment Sit to and From Stand Sit to and from Stand Maximum Assistance 2 Person Assistance Transfers Transfer Ability Maximum Assistance 1 Person Assistance 2 Person Assistance Technique Transfer Destination Chair Transfer Technique Stand Pivot Devices Transfer Assistive Devices None Gait Belt Comments Mobility Comments Attempted pt to stand x 2 with FWW and not able to take any steps and therefore did MAX x 2 stand pivot to recliner. Pt on 2l of o2 at 94%. OT- Balance Assessment Sitting Balance and Reactions Static Sitting Balance Ability Fair Dynamic Sitting Balance Ability Poor Standing Balance and Reactions Static Standing Balance Ability Poor Dynamic Standing Balance Ability Poor M9 OT- IP Assessment and Plan Start: 07/17/18 11:03 Freq: Status: Active Protocol: Document 07/17/18 16:28 [facility] (Rec: 07/17/18 17:03 [facility] [email or web address]) OT Summary Assessment and Plan Potential Rehabilitation Potential Good Analytic Complexity at Evaluation Low Summary OT Impairments Strength Balance Functional Cognition Functional Mobility Grooming Dressing Toileting Bathing Toilet Transfers Shower Transfers Progress Towards Goals Slow Progress due to Medical Issues Slow Progress due to Activity Tolerance Slow Progress due to Cognition Assessment Summary Pt low complexity and main barrier is decreased activity tolerance, strength, endurance and at this time would benefit from skilled rehab pending medical stability. Goals Grooming Goal Contact Guard Assistance Dressing Goal Minimal Assistance Toileting Goal Minimal Assistance Bathing Goal Moderate Assistance Toilet Transfer Goal Minimal Assistance Shower Transfer Goal Minimal Assistance Patient/Caregiver Education Goal Demonstrate Energy Conservation and Pacing Caregiver Independent Assisting Patient Days to Meet Goals 10 Frequency of Treatment Frequency Of Treatment Once a Day Treatment Plan OT Treatment Plan ADL Training Functional Cognition Training Functional Mobility Patient/Family Education Discharge Planning Other Treatment Recommendations and Next Transfer with [facility]WW to [facility] Treatment Focus x 2. Discharge Recommendations OT Discharge Recommendations SNF Rehab Other Discharge Recommendations Pending medical stability and progress- may be able to do home health and home with 07/03
[2018-07-17] MEDS: prednisoLONE Syrup 15 MG/5 ML 30 MG PO (17:16)
[2018-07-17] MEDS: ACETAMINOPHEN 325 MG TABLET 975 MG PO (17:17)
[2018-07-17] MEDS: TRAMADOL 50 MG TABLET PO (17:20)
[2018-07-17] MEDS: CEFTRIAXONE 1 GM/50 ML FROZ.PIGGY IV (19:01)
[2018-07-17 19:36] LABS: Vitamin B12 > 1000 pg/mL (239-931)
[2018-07-17] MEDS: AZITHROMYCIN 500 MG in DEXTROSE 5% IN WATER 250 ML IV (20:30)
[2018-07-18] VITALS (14 sets, daily range): BP systolic 101–122; BP diastolic 54–78; PULSE 69–97; RESP 16–22; TEMP 36.5–36.9; O2SAT 90–99
--- NOTE | 2018-07-18 00:46 | PC.NURSE ---
Addendum entered by Celine Linder R.N. 07/18/18 06:00: Currently on 1L/min oxygen per NC with sat of 99% Original Note: Addendum entered by Celine Linder R.N. 07/18/18 05:23: Was noted to get SOB when up to BSC and sat dropped down to upper 80's with activity but then went back up to 95%. Recently, oximeter alarming frequently and found to be down to 87% so O2 restarted. Original Note: Addendum entered by Celine Linder R.N. 07/18/18 04:21: Up to BSC with walker and 2 assists but does not use walker appropriately even with direction. Had small loose brown stool with bright red blood noted; noted to have hemorrhoids. Original Note: Patient knows self and day of week but thought this was a retirement and month was June. Did not know year, birthdate or age. Does have expressive aphasia related to history of CVA but can understand and answer yes/no questions. Breath sounds with inspiratory crackles in right lobes; RA sat 96%. HR irregular with telemetry reading of afib CVR/BBB. Denies nausea. BT present and indicates she is passing flatus. Is incontinent of urine; wearing brief. Is able to turn self but when getting out of bed requires walker and 2 assist due to weakness. Denies pain. Fall risk score is high and bed alarm is activated.
[2018-07-18] MEDS: DEXTROSE 5%-0.45NS W/KCL 20MEQ 1,000 ML 60 MEQ IV ×2 (02:30→18:29)
[2018-07-18 05:18] LABS: Alanine Aminotransferase 19 IU/L (9-52); Albumin 3.3 g/dL (3.5-5.0); Albumin Globulin Ratio 0.9 (1.0-2.8); Alkaline Phosphatase 105 U/L (38-126); Aspartate Aminotransferase 37 IU/L (14-36); BUN Creatinine Ratio 13.3 (6-22); Bilirubin Total 0.3 mg/dL (0.2-1.3); Blood Urea Nitrogen 12 mg/dL (7-17); Calcium 8.5 mg/dL (8.4-10.2); Carbon Dioxide 26 mmol/L (22-32); Chloride 103 mmol/L (98-107); Estimated Glomerular Filt Rate > 60.0 mL/min (>60); Globulin 3.6 g/dL (1.7-4.1); Glucose 209 mg/dL (80-110); HEMOLYSIS < 15 (0-50); Magnesium 1.5 mg/dL (1.6-2.3); Phosphorous 1.4 mg/dL (2.8-4.1); Potassium 2.8 mmol/L (3.4-5.1); Sodium 140 mmol/L (137-145); Total Protein 6.9 g/dL (6.3-8.2)
[2018-07-18 05:27] LABS: Add Manual Diff / Slide Review NO; Basophils Percent Auto 0.2 % (0-2); Hematocrit 30.9 % (36-46); Hemoglobin 10.7 g/dL (12.0-16.0); Lymphocytes Percent Auto 8.2 % (25-40); Mean Corpuscular HGB Conc 34.5 % (30-36); Mean Corpuscular Hemoglobin 40.2 PG (26-34); Mean Corpuscular Volume 116.4 fL (80-100); Monocytes Percent Auto 2.9 % (3-14); Neutrophils Absolute Auto 6400 /uL (3000-5900); Neutrophils Percent Auto 88.7 % (50-75); Platelet Count 197 X10^3/uL (150-400); Red Blood Cell Count 2.66 X10^6/uL (4.0-5.2); Red Cell Distribution Width 13.5 % (11.6-14.8); White Blood Cell Count 7.3 X10^3/uL (4.5-11.0)
[2018-07-18] MEDS: ALBUTEROL 2.5 MG/3 ML NEB (ADULT) INH ×2 (05:38→18:32)
[2018-07-18 06:00] LABS: Macrocytosis 1+
[2018-07-18] MEDS: dilTIAZem CD 240 MG CAP PO (07:53)
[2018-07-18] MEDS: METOPROLOL IR 50 MG TABLET PO ×2 (07:53→20:46)
[2018-07-18] MEDS: DABIGATRAN 75 MG CAPSULE 150 MG PO ×2 (07:53→20:46)
[2018-07-18] MEDS: MAGNESIUM SULFATE 2 GM/50 ML PIGGYBACK IV (08:44)
[2018-07-18] MEDS: POTASSIUM CHLORIDE 20 MEQ TAB 40 MEQ PO ×3 (08:44→17:00)
[2018-07-18] MEDS: prednisoLONE Syrup 15 MG/5 ML 30 MG PO (08:45)
--- NOTE | 2018-07-18 09:03 | SLP.IPNOTE ---
Attempted to see pt for speech/language assessment. Pt is familiar to this LICENSED CLINICAL SOCIAL WORKER from outpatient aphasia treatment 2017. The pt recognized the LICENSED CLINICAL SOCIAL WORKER but refused assessment, saying No when informed of purpose of visit. Pointed to TV, indicating that she wished to watch it and proceeded to. Will re-attempt later in the day.
[2018-07-18] MEDS: SODIUM,POTASSIUM PHOSPHATES PACKET 2 EACH PO (11:03)
[2018-07-18] MEDS: MAGNESIUM OXIDE 400 MG TABLET PO (11:03)
--- NOTE | 2018-07-18 11:34 | CM.DPC ---
DCP Cont: Met with patient and spouse. Patient wants to return home versus going to skilled facility. Discussed other option of home health, and gave Medicare choice list to spouse. P.T. stated that patient is still weak, and best option may be skilled facility. They will be working with patient today. P: DCP to continue to follow closely, home with home health versus correction. Ladan Chery RN/Tube Roller
--- NOTE | 2018-07-18 11:35 | PM.PN.1 ---
Subjective Date Patient Seen: 07/18/18 Interval history: FEELING BETTER TODAY COMMUNICATE WITH GESTURE MOSTLY HAS DIFF WITH SPEECH NO SIGNIFICANT ISSUES OVERNIGHT SPOKE TO NURSING REGARDING THE CASE Exam Vital Signs (past 8 hours): - 07/18/18 04:00 07/18/18 05:39 07/18/18 06:00 Temperature 98 F Pulse Rate 86 Respiratory Rate 17 Blood Pressure 114/69 Pulse Oximetry 96 97 99 07/18/18 08:50 Temperature 98.1 F Pulse Rate 80 Respiratory Rate 22 Blood Pressure 112/61 Pulse Oximetry 95 Oxygen Delivery Method Room Air Oxygen Flow Rate 1 Narrative Exam Narrative: Exam Narrative: NO ACUTE DISTRESS. PATIENT IS ALERT ORIENTED X2. THIN; HEAD ATRAUMATIC NORMOCEPHALIC NECK : SUPPLE WITHOUT ADENOPATHY EYE: EOMI, PERRLA, NORMAL CONJUNCTIVA CHEST: REGULAR RATE.. NO RUBS. PMI IS NON DISPLACED. NO MURMURS PULMONARY: DECREASED BS OVER THE BASES. MILD BIBASILAR CRACKLES NOTED; NO INCREASED DULLNESS TO PERCUSSION ABDOMINAL: SOFT NONTENDER. BOWEL SOUNDS PRESENT ALL 4 QUADRANTS. NO ORGANOMEGALY. NO MASS. NO GUARDING. EXTREMITIES: NO EDEMA. . NO CYANOSIS CLUBBING NOTED. NEURO: FOCAL NEUROLOGICAL DEFICIT NOTED FROM PRIOR CVA. NO NEW DEFICIT. DIFFICULTY WITH SPEECH MSK: NORMAL RANGE OF MOTION FOR AGE. NO JOINT EFFUSION. SKIN: NORMAL FOR ETHNICITY; NO ECCHYMOSIS. NO LESION. GOOD TURGOR.; NORASHES : NORMAL EXTERNAL GENITALIA. PSYCH : CALM AND COOPERATIVE; ALERT AWAKE ORIENTED X2 Objective Labs Result Diagrams: 07/18/18 04:53 07/18/18 04:53 Labs: Laboratory Results - last 24 hr 07/17/18 07/18/18 07/18/18 17:46 04:53 04:53 WBC 7.3 RBC 2.66 L Hgb 10.7 L Hct 30.9 L MCV 116.4 H D MCH 40.2 H MCHC 34.5 RDW 13.5 Plt Count 197 Neut % (Auto) 88.7 H D Lymph % (Auto) 8.2 L [place] % (Auto) 2.9 L Eos % (Auto) 0.0 L Baso % (Auto) 0.2 Neut # (Auto) 6400 H RBC Morphology See below Macrocytosis 1+ H Sodium 140 Potassium 2.8 L Chloride 103 Carbon Dioxide 26 BUN 12 Creatinine 0.90 Estimated GFR > 60.0 BUN/Creatinine Ratio 13.3 Glucose 209 H D Calcium 8.5 Phosphorus 1.4 L Magnesium 1.5 L Total Bilirubin 0.3 AST 37 H ALT 19 Alkaline Phosphatase 105 Total Protein 6.9 Albumin 3.3 L Globulin 3.6 Albumin/Globulin Ratio 0.9 L Vitamin B12 > 1000 H Folate 18.0 Assessment & Plan Plan: Assessment/Plan Narrative: IMPRESSION AND PLAN ACUTE COPD EXACERBATION. CONTINUE WITH ORAL STEROIDS TODAY . PATIENT APPEARED TO BE SIGNIFICANTLY IMPROVE RESPIRATORY SANCHEZ; CONTINUED ON ANTIBIOTICS. DUONEB TREATMENTS ORDERED. RESPIRATORY THERAPY ON BOARD AND ASSISTANCE APPRECIATED. CONTINUOUS PULSE OX INDICATED. SERIAL CHEST X-RAY AND ABG TO FOLLOW; INCENTIVE SPIROMETRY WILL BE ORDERED; ENCOURAGE AMBULATION TOLERATED; FURTHER MANAGEMENT INDICATED COMMUNITY-ACQUIRED PNEUMONIA VERSUS ASPIRATION PNEUMONIA DUE TO MICROASPIRATION. CONTINUE CURRENT ANTIBIOTICS. REPEAT CHEST X-RAY SHOWING STABLE CHEST. PRIOR CVA. SIGNIFICANT NEURO DEFICIT. FALL PRECAUTION. ASPIRATION PRECAUTIONS. PT OT. HYPERNATREMIA. SECONDARY TO DEHYDRATION. RESOLVED; CONTINUE GENTLE REHYDRATION WITH IV FLUIDS FOR NOW ANEMIA. MACROCYTOSIS NOTED. ADEQUATE LEVEL OF B12 AND FOLATE PROLAPSE. TREAT INDICATED HYPOKALEMIA. LIKELY DUE TO LASIX GIVEN YESTERDAY. WE WILL REPLACE ORALLY TODAY. REPEAT LABS IN THE MORNING HYPOMAGNESEMIA; PATIENT WILL BE GIVEN MAGNESIUM AGAIN TODAY. REPEAT LABS IN THE MORNING AND TREAT INDICATED HYPOPHOSPHATEMIA. PATIENT WILL BE GIVEN ORAL PHOSPHORUS TODAY. REPEAT LABS IN THE MORNING PHYSICAL DECONDITIONING. MULTIFACTORIAL. PT OT ORDERED DIFFICULTY WITH SPEECH. SPEECH THERAPY CONSULTED DYSPHAGIA. SPEECH THERAPY CONSULT IS RO ASPIRATION PRECAUTION. PATIENT APPEARS CLINICALLY IMPROVED TODAY I SPOKE TO NURSING REGARDING CASE REPEAT LABS IN THE MORNING FALL AND ASPIRATION PRECAUTION PT OT IF PATIENT CONTINUED TO IMPROVE, SHE SHOULD BE ABLE TO BE DISCHARGED IN NEXT 24 HR Quality VTE Deep Vein Thrombosis/Pulmonary Embolism Present on Admission: No
--- NOTE | 2018-07-18 12:42 | SLP.IPNOTE ---
POTTERY MACHINE OPERATOR returned to pt's room to discuss language eval. Patient immediately shook her head no when POTTERY MACHINE OPERATOR stated that she was present for assistance in expressive communication. Patient was adamant that she did not want to participate in a language evaluation. At this time, POTTERY MACHINE OPERATOR visits to the patient are upsetting to her. D/C order. Please reconsult if warranted/should patient agree to participate.
--- NOTE | 2018-07-18 14:10 | PT.IPTN ---
Current Diagnoses Hypokalemia (07/15/18) Unspecified atrial fibrillation (07/15/18) Cerebral infarction, unspecified (07/15/18) Pneumonia, unspecified organism (07/15/18) Ulcer of anus and rectum (07/15/18) Aphasia (07/15/18) Physical Therapy Treatment Note M2 PT-IP Current Condition Start: 07/17/18 10:49 Freq: NEEDED Status: Active Protocol: Document 07/17/18 13:25 (Rec: 07/17/18 15:34 [id number]) Physical Therapy Current Condition Current Condition Evaluation Date 07/17/18 Treatment Diagnosis Pneumonia; Generalized weakness Onset Date 07/15/18 Precautions Other Precautions Monitor 02 M3 PT-IP Subjective Start: 07/17/18 10:49 Freq: NEEDED Status: Active Protocol: Document 07/18/18 14:10 (Rec: 07/18/18 16:12 [email or web address]) Subjective Physical Therapy Visit Type Type Treatment Note Visit Start Time 14:10 Visit Stop Time 14:29 Total Visit Minutes 19 Number of SWITCHGEAR REPAIRER Visits 0 Physical Therapy Visit Comments Patient Comments Pt agreeable to mobilize with PT. present and agreeable for caregiver training. Patient Goals Pt and are adamant in desire to d/c home. M4 PT-IP Mobility and Gait Start: 07/17/18 10:49 Freq: NEEDED Status: Active Protocol: Document 07/18/18 14:10 (Rec: 07/18/18 16:12 [email or web address]) PT-Transfer Assessment Sit to and From Stand Sit to and from Stand Maximum Assistance 1 Person Assistance Use of Upper Extremities Equipment Transfer Assistive Device Front Wheeled Walker Orthotic/Prosthetic Devices or Brace: No Transfers Transfer Destination Chair Transfer Technique Ambulates between surfaces Transfer Ability Level of Assist Minimal Assistance 1 Person Assistance Use of Upper Extremities Comments Mobility Comments Pt found in room on bsc with nursing at beginning session. Pt performs sit > stand from bsc with maxAx1 provided by caregiver/ (PT CGA for safety). Pt requiring maxAx1 for standing balance during pericare. [id number] bsc > chair is requires minAx1 provided by caregiver/ . Sit > stand from recliner provided with providing 1p assist is safely demonstrated. Gait Assessment Gait Gait Assistance Required: Minimum Assistance 1 Person Assist Distance (Feet) 15 Able to Maintain Weight Bearing Status Yes During Gait Assistive Devices Assistive Device None Gait Belt Orthotic/Prosthetic Devices or Brace: No Gait Deviations General Gait Pattern Ataxic Decreased Stride Length Decreased Feet Clearance Factors Limiting Gait Function Factors Limiting Gait Function Decreased Activity Tolerance Decreased Strength Poor Balance Poor Safety Awareness Respiratory Distress Comments Gait Comments Pt ambulates 15 ft from chair to bed with no AD and with providing assist (PT CGA for safety). Pt and link arms for ambulation. Gait is notable for significant variability in step pattern; demonstrates high steppage gait intermixed with small shuffling steps. PT-Balance Assessment Sitting Balance and Reactions Static Sitting Balance Ability Good Dynamic Sitting Balance Ability Good Standing Balance and Reactions Static Standing Balance Ability Poor Dynamic Standing Balance Ability Poor Device Used none M5 PT-IP Objective Assessments Start: 07/17/18 10:49 Freq: NEEDED Status: Active Protocol: Document 07/17/18 13:25 (Rec: 07/17/18 15:34 [id number]) Orientation Orientation/Cognition Level of Alertness Alert Language Function Ability Expressive Aphagia Comments Pt responds to yes/no questions well. Gross Range of Motion Lower Extremity ROM Assessment Within Functional Limits Strength Lower Extremity Strength Assessment Bilaterally Impaired Hip 3+ Knee 3+ Ankle 3+ Comments Strength Comments Pt fatigues very easily. M6 PT-IP Treatment Start: 07/17/18 10:49 Freq: NEEDED Status: Active Protocol: Document 07/18/18 14:10 (Rec: 07/18/18 16:12 [email or web address]) Physical Therapy Treatment Education Education Provided Safety Other Treatments Other Treatment Performed Discussed pt safety for home and addressed safe ambulation and transfers. Pt and have developed their own way to do this at home and demonstrated sit <> stand transfers and ambulation with providing assist. Safety demonstrated was not excellent, but fair to good. Pt and understand that a 2nd person will be needed for self care activities such as toileting and bathing. M7 PT-IP Assessment and Plan Start: 07/17/18 10:49 Freq: NEEDED Status: Active Protocol: Document 07/18/18 14:10 (Rec: 07/18/18 16:12 [email or web address]) PT Summary Assessment and Plan Potential Rehabilitation Potential Good Summary Impairments Strength Balance Cognition Bed Mobility Transfers Gait Activity Tolerance Progress Towards Goals Slow Progress due to Medical Issues Assessment Summary Pt able to complete sit <> stand transfer and 15 ft ambulation using no AD with assist provided by . Safety demonstrated was not optimal, but reasonable. Pt not a good candidate for AD as it appears to cause her more confusion than is helpful. When pt is medically stable recommend dc to home with 24/7 assist and vs. SNF. Goals Bed Mobility Goal Standby Assistance Transfer Goal Contact Guard Assistance Gait Goal Contact Guard Assistance Gait Distance 150 Days to Meet Goals 5 Frequency of Treatment Frequency Of Treatment Once a Day Treatment Plan Physical Therapy Treatment Plan Bed Mobility Training Transfer Training Gait Training Therapeutic Exercise Balance Retraining Discharge Planning Hot or Cold Pack Neuromuscular Re-ed Coordination Retraining Manual Therapy Other Recommendations and Next Treatment Progress pt ambulation as Focus appropriate. Funcitonal strengthening Recommendations To Nursing Amount of Assist Needed 2 Person Assist Discharge Recommendations PT Discharge Recommendations Home with 24/7 Assist Home Health SNF Rehab
--- NOTE | 2018-07-18 16:11 | OT.IP.TRT ---
Current Diagnoses Hypokalemia (07/15/18) Unspecified atrial fibrillation (07/15/18) Cerebral infarction, unspecified (07/15/18) Pneumonia, unspecified organism (07/15/18) Ulcer of anus and rectum (07/15/18) Aphasia (07/15/18) Occupational Therapy Treatment Note M2 OT-IP Current Condition Start: 07/17/18 11:03 Freq: Status: Active Protocol: Document 07/17/18 16:28 [facility] (Rec: 07/17/18 17:03 [facility] [id number]) Occupational Therapy Current Condition Current Condition Evaluation Date 07/17/18 Treatment Diagnosis PNA, weakness Diagnosis Onset Date 07/15/18 Post Operative Precautions Other Precautions Monitor 02 currently on 2L. M3 OT- IP Subjective and Pain Start: 07/17/18 11:03 Freq: Status: Active Protocol: Document 07/18/18 15:58 [facility] (Rec: 07/18/18 16:11 [facility] [id number]) OT- Subjective Occupational Therapy Visit Type Type Treatment Note Visit Start Time 14:03 Visit Stop Time 14:38 Total Visit Minutes 35 Notes Pt's present for family training also with PT student, PT , and OT. Occupational Therapy Visit Comments Patient/Caregiver Goals Pt continues to be adamant to go home versus skilled rehab. OT Pain Assessment Pain When Pain Assessed At Rest Pain Present Pain Present Denied Pain M4 OT- IP ADL's Start: 07/17/18 11:03 Freq: Status: Active Protocol: Document 07/18/18 15:58 [facility] (Rec: 07/18/18 16:11 [facility] [id number]) OT ADL-Dressing General Eval Lower Body Dressing Ability Moderate Assistance Areas Needing Assistance Underpants/Brief Comments OT Dressing Comments Pt able to initially alexander brief over her feet while sitting on the BSC and needing MODA to stand and assist to help alexander over her hips. OT ADL-Toileting General Evaluation Toileting Ability Maximum Assistance Areas Needing Assistance Manage Clothing Perform Perineal Hygiene Devices Toileting Assistive Devices Commode Comments OT Toileting Comments Pt needing MODA X 1 to stand and another person to assist with hygiene needs. M5 OT- IP IADL's Start: 07/17/18 11:03 Freq: Status: Active Protocol: Document 07/17/18 16:28 [facility] (Rec: 07/17/18 17:03 [facility] [id number]) OT-Instrumental Activities of Daily Living Medication Management Medication Management Caregiver Administers Money Management Money Management Caregiver Provides Assistance Meal Preparation Meal Preparation Caregiver Provides Assist Liquor Blender Liquor Blender Caregiver Provides Assist Driving Driving Caregiver Provides Assist M6 OT- IP Functional Cognition Start: 07/17/18 11:03 Freq: Status: Active Protocol: Document 07/18/18 15:58 [facility] (Rec: 07/18/18 16:11 [facility] [id number]) Cognitive Factors Limiting Selfcare Function Cognitive Ability Level of Alertness Alert Patient Orientation Name Attention Span Ability Capable of Focused Attention Capable of Sustained Attention Ability to Follow Commands Able to Follow One Step Commands with Increased Time Able to Follow One Step Commands with Repetition Cognitive Comments Cognitive Assessment Comments Pt able to follow commands better today and more reliable with yes/no questions. M7 OT- IP Mobility and Balance Start: 07/17/18 11:03 Freq: Status: Active Protocol: Document 07/18/18 15:58 [facility] (Rec: 07/18/18 16:11 [facility] [id number]) OT-Transfer Assessment Sit to and From Stand Sit to and from Stand Moderate Assistance 1 Person Assistance Transfers Transfer Ability Moderate Assistance 1 Person Assistance Technique Transfer Destination Bed Chair Transfer Technique Stand Step Pivot Devices Transfer Assistive Devices None Gait Belt Comments Mobility Comments Pt's able to assist pt to stand as pt tends to grab a hold on his arm to stand. Pt prefers holding onto her versus use of walker to walk. Pt would benefit from a wc if going for longer distances due to decreased balance and endurance. Suggested possible use of transfer pole for use in the bathroom or bedroom, therefore pt would be able to assist to stand while able to assist for hygiene or dressing needs. Pt's states, sister able to come and assist as she lives next door. OT- Balance Assessment Sitting Balance and Reactions Static Sitting Balance Ability Normal Dynamic Sitting Balance Ability Good Standing Balance and Reactions Static Standing Balance Ability Fair Dynamic Standing Balance Ability Poor M9 OT- IP Assessment and Plan Start: 07/17/18 11:03 Freq: Status: Active Protocol: Document 07/18/18 15:58 [facility] (Rec: 07/18/18 16:11 [facility] [id number]) OT Summary Assessment and Plan Potential Rehabilitation Potential Good Analytic Complexity at Evaluation Low Summary OT Impairments Strength Balance Functional Cognition Functional Mobility Grooming Dressing Toileting Bathing Toilet Transfers Shower Transfers Progress Towards Goals Progressing Toward Goals Assessment Summary Noted pt having increased balance , mobility and able to follow directions better today. Pt's has initiated caregiver training and will need to continue to do so tomorrow for stair training with PT and for other ADL needs with OT. Pt would benefit from skilled rehab , however pt refusing and therefore pending training home with 07/03 and home health. Goals Grooming Goal Contact Guard Assistance Dressing Goal Minimal Assistance Toileting Goal Minimal Assistance Bathing Goal Moderate Assistance Toilet Transfer Goal Minimal Assistance Shower Transfer Goal Minimal Assistance Patient/Caregiver Education Goal Demonstrate Energy Conservation and Pacing Caregiver Independent Assisting Patient Days to Meet Goals 5 Frequency of Treatment Frequency Of Treatment Once a Day Treatment Plan OT Treatment Plan ADL Training Functional Cognition Training Functional Mobility Patient/Family Education Discharge Planning Other Treatment Recommendations and Next Caregiver training with Treatment Focus for Adl needs. Discharge Recommendations OT Discharge Recommendations Home with 07/03 Assist Home Health SNF Rehab Other Discharge Recommendations Pending medical stability and progress- may be able to do home health and home with 07/03
[2018-07-18] MEDS: CEFTRIAXONE 1 GM/50 ML FROZ.PIGGY IV (18:30)
[2018-07-18] MEDS: AZITHROMYCIN 500 MG in DEXTROSE 5% IN WATER 250 ML IV (19:24)
--- NOTE | 2018-07-18 23:47 | PC.NURSE ---
Addendum entered by Celine Linder R.N. 07/19/18 06:45: Appearing anxious this morning and when asked nods head yes. Medicated with Xanax per her request/agreement. Original Note: Patient alert but unable to assess orientation tonight as patient became agitated and angry with RN when asked to indicate answers using communication board; kept waving RN away and stating tomorrow and had frown on face. Breath sounds with inspiratory crackles in right mid/lower lobes; still reports SOB with exertion but current RA sat was 95%. HR irregular and has been afib CVR on last tele reading. Denies nausea. BT present and abdomen is soft. Denies pain. Able to move self in bed but needs 2 maximum assist + walker when transferring out of bed. Is incontinent of urine but has been continent of stool. Fall risk score is high and bed alarm is activated.
[2018-07-19 05:00] VITALS: BP 126/71; PULSE 91; RESP 18; TEMP 36.6
[2018-07-19 06:03] LABS: Add Manual Diff / Slide Review NO; Basophils Percent Auto 0.3 % (0-2); Hematocrit 31.2 % (36-46); Hemoglobin 10.3 g/dL (12.0-16.0); Lymphocytes Percent Auto 11.2 % (25-40); Mean Corpuscular HGB Conc 33.2 % (30-36); Mean Corpuscular Volume 111.5 fL (80-100); Neutrophils Absolute Auto 10000 /uL (3000-5900); Neutrophils Percent Auto 80.5 % (50-75); Platelet Count 199 X10^3/uL (150-400); Red Cell Distribution Width 14.5 % (11.6-14.8); White Blood Cell Count 12.4 X10^3/uL (4.5-11.0)
[2018-07-19 06:12] LABS: Alanine Aminotransferase 43 IU/L (9-52); Albumin 3.2 g/dL (3.5-5.0); Albumin Globulin Ratio 0.9 (1.0-2.8); Alkaline Phosphatase 111 U/L (38-126); Aspartate Aminotransferase 82 IU/L (14-36); Bilirubin Total 0.3 mg/dL (0.2-1.3); Blood Urea Nitrogen 12 mg/dL (7-17); Calcium 8.2 mg/dL (8.4-10.2); Carbon Dioxide 28 mmol/L (22-32); Chloride 107 mmol/L (98-107); Estimated Glomerular Filt Rate > 60.0 mL/min (>60); Globulin 3.7 g/dL (1.7-4.1); Glucose 105 mg/dL (80-110); HEMOLYSIS < 15 (0-50); Magnesium 1.8 mg/dL (1.6-2.3); Phosphorous 1.2 mg/dL (2.8-4.1); Potassium 4.8 mmol/L (3.4-5.1); Sodium 141 mmol/L (137-145); Total Protein 6.9 g/dL (6.3-8.2)
[2018-07-19 06:29] LABS: Macrocytosis 2+
[2018-07-19 06:40] VITALS: O2SAT 97
[2018-07-19] MEDS: ALPRAZolam 0.5 MG TABLET PO (06:40)
[2018-07-19 08:00] VITALS: BP 89/44; PULSE 109; RESP 18; TEMP 36.4; O2SAT 97
[2018-07-19] MEDS: dilTIAZem CD 240 MG CAP PO (08:38)
[2018-07-19] MEDS: METOPROLOL IR 50 MG TABLET PO (08:38)
[2018-07-19] MEDS: SODIUM,POTASSIUM PHOSPHATES PACKET 2 EACH PO (08:39)
[2018-07-19] MEDS: DABIGATRAN 75 MG CAPSULE 150 MG PO (08:39)
[2018-07-19] MEDS: prednisoLONE Syrup 15 MG/5 ML 30 MG PO (08:47)
--- NOTE | 2018-07-19 10:35 | PM.DS.1 ---
History of Present Illness Date Patient Seen: 07/19/18 Time Patient Seen: 09:47 Chief complaint: CONFUSION Narrative: Chief complaint: CONFUSION This is a 72-year-old female, who lives at her home in [place] with her , who presents with 2 months of diminishing ability to balance, with 2 weeks of diminishing eating and appetite, finally prompting a visit to the emergency department last night where she was diagnosed with pneumonia and severe obstipation causing stercoral colitis. Her baseline is atrial fibrillation with stroke effect causing expressive aphasia after a stroke 1 and half years ago. She has had no fevers, coughing, shortness of breath, chest pain, vomiting, abdominal pain or other clues as to what was going on with her symptoms. She was admitted for treatment of the obstipation, the pneumonia and her generalized weakness/lack of appetite and significant hypokalemia. The potassium is 2.5. Discharge Providers Date of admission: 07/15/18 19:14 Primary care physician: Caitlin Pressley PA-C Consults: 07/17/18 09:51 Consult to Occupational Therapy Evaluate & Treat Comment: Physician Instructions: Evaluate and treat Consult to Physical Therapy Evaluate & Treat Comment: Physician Instructions: Evaluate and Treat Consult to Respiratory Therapy Evaluate & Treat Comment: Physician Instructions: Evaluate and treat 07/17/18 11:15 Consult to Speech Therapy Evaluate & Treat Comment: Physician Instructions: Evaluate and treat Discharge provider: Madelin Patterson DO Discharge Date: 07/19/18 Summary Discharge Diagnosis: CONSTIPATION DEHYDRATION ELECTROLYTES IMBALANCES POSS ACUTE MILD COPD EXACERBATION PHYSICAL DECONDITIONING DYSPHAGIA DYSARTHIA Hospital Course: - PATIENT ADMITTED WITH ABDOMINAL PAIN WHICH WAS DUE TO SEVERE CONSTIPATION - TREATED WITH LAXATIVE, SHE HAD GOOD RESULTS - SHE ALSO DEVELOPED SOME RESPIRATORY DIFFICULTIES AND CXR SHOW COPD - SHE WAS TREATED WITH ABX AND STEROIDS - RESPONDED WELL TO TREATMENT WHICH INCLUDED REHYDRATION WELL - SHE DID SHOW SIGNS OF PHYSICAL DECONDITIONING BUT POA/PATIENT REFUSED SNF FOR NOW - SHE WAS DC HOME WITH HH - INSTRUCTED TO CONT PATIENT ON MIRELAX WHICH IS OTC - SENNAKOT ALSO COULD BE USED TO HELP AND PREVENT CONSTIPATION - ADDITIONAL MANAGEMENT PER OUTPATIENT PROVIDERS Status at Discharge Cognitive/behavioral status at discharge: STABLE TO HOME Functional status at discharge: independent ambulation Overall status at discharge: patient is back to baseline Time Spent with Patient Greater than 30 minutes Exam Vital Signs (past 8 hours): - 07/19/18 05:00 07/19/18 06:40 07/19/18 08:00 Temperature 97.8 F 97.5 F L Pulse Rate 91 H 109 H Respiratory Rate 18 18 Blood Pressure 126/71 89/44 L Pulse Oximetry 97 97 Oxygen Delivery Method Room Air Oxygen Flow Rate 0 Narrative Exam Narrative: Exam Narrative: NO ACUTE DISTRESS. PATIENT IS ALERT ORIENTED X3. THIN; HEAD ATRAUMATIC NORMOCEPHALIC NECK : SUPPLE WITHOUT ADENOPATHY EYE: EOMI, PERRLA, NORMAL CONJUNCTIVA CHEST: REGULAR RATE.. NO RUBS. PMI IS NON DISPLACED. NO MURMURS PULMONARY: DECREASED BS OVER THE BASES. MILD BIBASILAR CRACKLES NOTED; NO INCREASED DULLNESS TO PERCUSSION ABDOMINAL: SOFT NONTENDER. BOWEL SOUNDS PRESENT ALL 4 QUADRANTS. NO ORGANOMEGALY. NO MASS. NO GUARDING. EXTREMITIES: NO EDEMA. . NO CYANOSIS CLUBBING NOTED. NEURO: FOCAL NEUROLOGICAL DEFICIT NOTED FROM PRIOR CVA. NO NEW DEFICIT. DIFFICULTY WITH SPEECH MSK: NORMAL RANGE OF MOTION FOR AGE. NO JOINT EFFUSION. SKIN: NORMAL FOR ETHNICITY; NO ECCHYMOSIS. NO LESION. GOOD TURGOR.; NORASHES : NORMAL EXTERNAL GENITALIA. PSYCH : CALM AND COOPERATIVE; ALERT AWAKE ORIENTED X3 Objective Labs Result Diagrams: 07/19/18 04:58 07/19/18 04:58 Labs: Laboratory Results - last 24 hr 07/19/18 07/19/18 04:58 04:58 WBC 12.4 H D RBC 2.80 L Hgb 10.3 L Hct 31.2 L MCV 111.5 H D MCH 37.0 H MCHC 33.2 RDW 14.5 Plt Count 199 Neut % (Auto) 80.5 H Lymph % (Auto) 11.2 L Granite % (Auto) 8.0 Eos % (Auto) 0.0 L Baso % (Auto) 0.3 Neut # (Auto) 75961 H RBC Morphology See below Macrocytosis 2+ H Sodium 141 Potassium 4.8 D Chloride 107 Carbon Dioxide 28 BUN 12 Creatinine 0.60 Estimated GFR > 60.0 BUN/Creatinine Ratio 20.0 Glucose 105 D Calcium 8.2 L Phosphorus 1.2 L Magnesium 1.8 Total Bilirubin 0.3 AST 82 H ALT 43 Alkaline Phosphatase 111 Total Protein 6.9 Albumin 3.2 L Globulin 3.7 Albumin/Globulin Ratio 0.9 L Discharge Plan Discharge Plan Patient Disposition: Home Health Service Discharge comment: DC HOME WITH HOME HEALTH [facility] CARDIAC SOFT DIET F/U WITH PCP 3-10 DAYS Discharge Med Rec/Prescriptions Prescriptions: New prednisolone 15 mg/5 mL Solution 30 mg PO DAILY 3 Days RF: 0 azithromycin 500 mg tablet See Label Instructions .ROUTE .COMPLEX Qty: 3 RF: 0 amoxicillin-pot clavulanate [Augmentin] 500-125 mg tablet 1 tab PO Q12H Qty: 10 RF: 0 Continue tramadol 50 MG tablet 50 mg PO TID PRN (Reason: Pain (Scale Score 4-6)) Qty: 0 RF: 0 alprazolam [Xanax XR] 0.5 MG tablet extended release 24 hr 0.5 mg PO BID PRN (Reason: Anxiety) Qty: 0 RF: 0 diltiazem HCl 240 MG capsule,extended release 24hr 240 mg PO QDAY Qty: 30 RF: 0 dabigatran etexilate [Pradaxa] 75 MG capsule 150 mg PO BID Qty: 60 RF: 0 metoprolol tartrate 50 MG tablet 50 mg PO BID Qty: 60 RF: 0 Provider Discharge Instructions Diet: Regular Diet comment: ONE ENSURE WITH EACH MEAL OR IN BETWEEN MEALS Skin/Wound/Dressing Care Report to your healthcare provider any signs of infection, such as:: chills, fever, night sweats, increased pain, unusual drainage and unusual redness Discharge Data Primary Care Provider: Caitlin Pressley Attending Provider: Eldon Swanson Admit Date/Time: 07/15/18 19:14 Quality VTE Deep Vein Thrombosis/Pulmonary Embolism Present on Admission: No
--- NOTE | 2018-07-19 10:41 | PC.NURSE ---
Addendum entered by Lana Stafford R.N. 07/19/18 14:54: Pt d/c home with HH, clarified orders and updated next dosing instructions. IV and tele out. Original Note: Addendum entered by Lana Stafford R.N. 07/19/18 13:12: After much back and forth, Spouse would like to continue to work on D/c home with HH. Pt continues with loose stools. Will send out for c diff Original Note: Addendum entered by Lana Stafford R.N. 07/19/18 11:25: Pt has had 4 loose stools this shift, barrier cream applied liberally, redness and discomfort to [place]. into see Pt and plan for d/c with HH Original Note: Note Talked with Sister at length, Concerns about not using FWW and PT to continue when D/c home. With Poor appetite, family concerned, questions for appetite stimulant to help with intake. Sister requested follow up MRI, recoomended follow up with outpatient neurologist, as mentation has been pretty stable while here in hospital. Discussed incont and Pt needing assist with incont care at home prior to admission. Will continue to follow up with care prior to d/c.
[2018-07-19] MEDS: ALBUTEROL 2.5 MG/3 ML NEB (ADULT) INH ×2 (10:54→11:50)
[2018-07-19 10:59] VITALS: O2SAT 97
--- NOTE | 2018-07-19 11:11 | CM.DPC ---
DCP: continued: case received, EMR reviewed and met with pt and her Surinder after an initial update by OT and RN Lana. Introduced self and role. Discussion with them and including OT Ashli re the d/c options. Therapy team is concerned that pt now needs more assistance than she did prior to admitting here on 07/15. Pt follows closely the conversation and is very adamant in her non-verbal expression of NO re the snf option. Surinder does say that the physicians have told him the medical issues that brought her here would make anyone weak and he expects that she will recover quickly at home. He does assist her but she does much of her own care herself. Discussed specifics of HH care. Both agree to HH RN/OT/PT and with choice [facility] or [facility], which ever can go out in the most timely way. Dr. Patterson confirms pt will d/c today. HH is ordered and Medicare/Face to Face paperwork completed. [facility] P: home today, HH services as per above. Pt and Surinder are discussion some specifics for home now with OT.
--- NOTE | 2018-07-19 11:26 | CM.DPC ---
Spoke with Maria Teresa @[facility] regarding time frame for RN opening...unable till Tuesday. Left a message for and faxed to Cynthia @[facility]. Per Haley
[2018-07-19 11:51] VITALS: PULSE 69; RESP 16; O2SAT 93
[2018-07-19 12:00] VITALS: BP 115/74; PULSE 101; RESP 18; TEMP 36.4
--- NOTE | 2018-07-19 12:13 | OT.IP.TRT ---
Current Diagnoses Hypokalemia (07/15/18) Unspecified atrial fibrillation (07/15/18) Cerebral infarction, unspecified (07/15/18) Pneumonia, unspecified organism (07/15/18) Ulcer of anus and rectum (07/15/18) Aphasia (07/15/18) Occupational Therapy Treatment Note M2 OT-IP Current Condition Start: 07/17/18 11:03 Freq: Status: Active Protocol: Document 07/17/18 16:28 [facility] (Rec: 07/17/18 17:03 [facility] [id number]) Occupational Therapy Current Condition Current Condition Evaluation Date 07/17/18 Treatment Diagnosis PNA, weakness Diagnosis Onset Date 07/15/18 Post Operative Precautions Other Precautions Monitor 02 currently on 2L. M3 OT- IP Subjective and Pain Start: 07/17/18 11:03 Freq: Status: Active Protocol: Document 07/19/18 12:02 [facility] (Rec: 07/19/18 12:13 [facility] [id number]) OT- Subjective Occupational Therapy Visit Type Type Treatment Note Visit Start Time 10:40 Visit Stop Time 11:45 Total Visit Minutes 65 Occupational Therapy Visit Comments Patient Comments Pt agreeable to take a shower and having assist. Pt' s present for family training. Patient/Caregiver Goals Pt adamant about going home. M4 OT- IP ADL's Start: 07/17/18 11:03 Freq: Status: Active Protocol: Document 07/19/18 12:02 [facility] (Rec: 07/19/18 12:13 [facility] [id number]) OT ADL-Dressing General Eval Upper Body Dressing Ability Moderate Assistance Lower Body Dressing Ability Maximum Assistance Areas Needing Assistance Managing Zippers/Fasteners Bra Pull-Over Shirt Underpants/Brief Pants/Shorts Socks Shoes Comments OT Dressing Comments Pt needing assist to fasten bra and to help pull down shirt in the back while sitting. Pt able to alexander legs into brief and pants and needing MAX A X 1 to stand and assist to fasten her pants, at this time would benefit from pull up pants otherwise would need second person to assist. OT ADL-Toileting General Evaluation Toileting Ability Maximum Assistance Areas Needing Assistance Manage Clothing Perform Perineal Hygiene Comments OT Toileting Comments MAX A for all hygiene and pull up brief over her hips, needing second person to assist due to pt's decreased balance and strength. Pt would benefit from grab bar at home to stand while able to assist. OT ADL-Bathing Bathing Type Bathing Type Shower General Evaluation Bathing Ability Moderate Assistance Areas Needing Assistance Retrieving/Setting Up Items Wash/Dry Back Wash/Dry Perineal Area Wash/Dry Lower Extremities Devices Bathing Equipment Hand Held Shower Sprayer Shower Chair with Arms Grab Bars Comments OT Bathing Comments While sitting pt able to assist for showering , but needing heavy use of grab bars to stand and assist for pericare needs. Pt would benefit from second person to assist especially otherwise obtain a tub bench for increased safety to get into the tub.. Pt noted heavy breathing while showering, nursing aware and respiratory therapy called in to work with pt. M5 OT- IP IADL's Start: 07/17/18 11:03 Freq: Status: Active Protocol: Document 07/17/18 16:28 [facility] (Rec: 07/17/18 17:03 [facility] [id number]) OT-Instrumental Activities of Daily Living Medication Management Medication Management Caregiver Administers Money Management Money Management Caregiver Provides Assistance Meal Preparation Meal Preparation Caregiver Provides Assist Chief Cook Chief Cook Caregiver Provides Assist Driving Driving Caregiver Provides Assist M6 OT- IP Functional Cognition Start: 07/17/18 11:03 Freq: Status: Active Protocol: Document 07/19/18 12:02 [facility] (Rec: 07/19/18 12:13 [facility] [id number]) Cognitive Factors Limiting Selfcare Function Cognitive Ability Level of Alertness Alert Confusional State Patient Orientation Name Ability to Follow Commands Able to Follow One Step Commands with Increased Time Able to Follow One Step Commands with Repetition M7 OT- IP Mobility and Balance Start: 07/17/18 11:03 Freq: Status: Active Protocol: Document 07/19/18 12:02 [facility] (Rec: 07/19/18 12:13 [facility] [id number]) OT-Transfer Assessment Sit to and From Stand Sit to and from Stand Moderate Assistance Maximum Assistance Total Assistance Transfers Transfer Ability Moderate Assistance Maximum Assistance 1 Person Assistance Technique Transfer Destination Bedside Commode Chair Transfer Technique Stand Step Pivot Devices Transfer Assistive Devices None Gait Belt Comments Mobility Comments Pt able to hold onto to walk slowly into the bathroom, pt very unsteady on her feet and would benefit from use of WC to walk longer distance or when pt tired. Pt's states has a wc. OT- Balance Assessment Sitting Balance and Reactions Static Sitting Balance Ability Normal Dynamic Sitting Balance Ability Good Standing Balance and Reactions Static Standing Balance Ability Poor Dynamic Standing Balance Ability Poor M9 OT- IP Assessment and Plan Start: 07/17/18 11:03 Freq: Status: Active Protocol: Document 07/19/18 12:02 [facility] (Rec: 07/19/18 12:13 [facility] [id number]) OT Summary Assessment and Plan Potential Rehabilitation Potential Good Analytic Complexity at Evaluation Low Summary OT Impairments Strength Balance Functional Cognition Functional Mobility Grooming Dressing Toileting Bathing Toilet Transfers Shower Transfers Progress Towards Goals Progressing Toward Goals Assessment Summary Pt continues to have decreased balance, endurance, and needing extensive assist for ADL's at this time. Pt adamant or going home and has been able to participate in showering and dressing pt and realizing that he will have to assist her greatly. Pt's states will have his sister come and assist for needs as needed and looking into getting BSC, tub bench, and grab bars for the pt. OT still strongly recommends short skilled rehab. Goals Grooming Goal Contact Guard Assistance Dressing Goal Minimal Assistance Toileting Goal Minimal Assistance Bathing Goal Moderate Assistance Toilet Transfer Goal Minimal Assistance Shower Transfer Goal Minimal Assistance Patient/Caregiver Education Goal Demonstrate Energy Conservation and Pacing Caregiver Independent Assisting Patient Days to Meet Goals 5 Frequency of Treatment Frequency Of Treatment Once a Day Treatment Plan OT Treatment Plan ADL Training Functional Cognition Training Functional Mobility Patient/Family Education Discharge Planning Discharge Recommendations OT Discharge Recommendations SNF Rehab Other Discharge Recommendations Pending medical stability and progress- may be able to do home health and home with 07/03
--- NOTE | 2018-07-19 13:51 | CM.DPC ---
Discharge packet faxed to [facility]
== END 2018-07-19 15:37 | disposition home health service (06) | DRG 178 ==
LOC: ED 19:12 → AC 19:15
PROVIDERS: Emergency Medicine; Hospitalist; Admitting Provider Family Medicine; Emergency Provider Emergency Medicine; Family Provider Internal Medicine; PCP Physician Assistant; Visit Provider Family Medicine
DX: J69.0 Pneumonitis due to inhalation of food and vomit (principal); E87.0 Hyperosmolality and hypernatremia; J44.1 Chronic obstructive pulmonary disease with (acute) exacerbation; E44.0 Moderate protein-calorie malnutrition; Z68.1 Body mass index [BMI] 19.9 or less, adult; J18.9 Pneumonia, unspecified organism; I69.920 Aphasia following unspecified cerebrovascular disease; E87.6 Hypokalemia; R13.10 Dysphagia, unspecified; E83.42 Hypomagnesemia; E83.39 Other disorders of phosphorus metabolism; I48.91 Unspecified atrial fibrillation; K59.00 Constipation, unspecified; E86.0 Dehydration
CPT/HCPCS: 36415; 36591; 36600; 71045; 71260; 74022; 74177; 80048; 80053; 81003; 82550; 82607; 82746; 82805; 83690; 83735; 84100; 84484; 85025; 86850; 86900; 86901; 93005; 93010; 94640; 94760; 94762; 96365; 96366; 96368; 97162; 97165; 97530; 97535; 99284; 99285; J1940; J2920; J3475; J3480; J7613

== ENCOUNTER → 2018-10-06 12:32 | Outpatient (CLI) | payer MEDICARE, OTHER, SELFPAY ==
--- NOTE | 2018-10-06 | DI.CT.S_ITS ---
PROCEDURE: CT HEAD/BRAIN WO CON INDICATIONS: ALTERED MENTAL STATE TECHNIQUE: Noncontrast 4.5 mm thick angled axial sections acquired from the foramen magnum to the vertex, with coronal and sagittal reformats. For radiation dose reduction, the following was used: automated exposure control, adjustment of mA and/or kV according to patient size. COMPARISON: [facility], CT, HEAD WITHOUT CONTRAST, 01/11/2017, 16:08. FINDINGS: Image quality: Excellent. CSF spaces: Basal cisterns are patent. No extra-axial fluid collections. The lateral ventricles and 3rd ventricle are abnormally prominent, particularly given the degree of gyral atrophy. The ventricles are stable compared to 2017. Brain: No intracranial bleeds or masses. There is cerebral volume loss for age, with resultant ventricular and sulcal prominence. There are periventricular and deep white matter chronic small vessel ischemic changes. There is intracranial internal carotid artery atherosclerosis. Skull and face: Calvarium and visualized facial bones appear intact, without suspicious lesions. Sinuses: Visualized sinuses and mastoids are clear. IMPRESSION: Abnormally prominent ventricles, which are stable. Differential diagnosis includes central atrophy and normal pressure hydrocephalus. Dictated by: Quang Dupont M.D. on 10/06/2018 at 12:16 Approved by: Quang Dupont M.D. on 10/06/2018 at 12:17
[2018-10-06 13:37] LABS: Add Manual Diff / Slide Review NO; Basophils Absolute Auto 100 /uL (0-100); Eosinophils Absolute Auto 500 /uL (0-450); Eosinophils Percent Auto 8.5 % (2-4); Hematocrit 36.9 % (36-46); Hemoglobin 12.5 g/dL (12.0-16.0); Lymphocytes Absolute Auto 1200 /uL (1100-4500); Lymphocytes Percent Auto 20.4 % (25-40); Mean Corpuscular HGB Conc 33.9 % (30-36); Mean Corpuscular Hemoglobin 37.9 PG (26-34); Monocytes Absolute Auto 700 /uL (0-900); Monocytes Percent Auto 11.9 % (3-14); Neutrophils Absolute Auto 3300 /uL (1500-7000); Neutrophils Percent Auto 58.2 % (50-75); Platelet Count 233 X10^3/uL (150-400); Red Cell Distribution Width 13.7 % (11.6-14.8); White Blood Cell Count 5.7 X10^3/uL (4.5-11.0)
[2018-10-06 13:39] LABS: Mean Corpuscular Volume 111.8 fL (80-100)
[2018-10-06 13:58] LABS: Macrocytosis 2+
[2018-10-06 14:40] LABS: Alanine Aminotransferase 22 IU/L (9-52); Alkaline Phosphatase 146 U/L (38-126); Aspartate Aminotransferase 31 IU/L (14-36); Bilirubin Total 0.8 mg/dL (0.2-1.3); Blood Urea Nitrogen 18 mg/dL (7-17); Calcium 10.1 mg/dL (8.4-10.2); Carbon Dioxide 28 mmol/L (22-32); Chloride 102 mmol/L (98-107); Estimated Glomerular Filt Rate > 60.0 mL/min (>60); Glucose 113 mg/dL (80-110); HEMOLYSIS < 15 (0-50); Potassium 3.5 mmol/L (3.4-5.1); Sodium 141 mmol/L (137-145)
[2018-10-06 14:58] LABS: Free T4, Direct Thyroxine 1.22 ng/dL (0.78-2.19)
[2018-10-06 15:12] LABS: Thyroid Stimulating Hormone 1.47 uIU/mL (0.47-4.68)
== END ==
LOC: CT 12:37 → LAB 12:38
PROVIDERS: PCP Physician Assistant; Visit Provider Physician Assistant
DX: R41.82 Altered mental status, unspecified (principal); N39.42 Incontinence without sensory awareness; R53.1 Weakness; R10.84 Generalized abdominal pain
CPT/HCPCS: 36415; 70450; 80053; 84439; 84443; 85025

== ENCOUNTER → 2019-05-31 18:51 | Outpatient (ROUT) | payer MEDICARE, OTHER, SELFPAY ==
[2019-05-31 19:02] LABS: Add Manual Diff / Slide Review NO; Basophils Absolute Auto 100 /uL (0-100); Basophils Percent Auto 1.1 % (0-2); Eosinophils Absolute Auto 300 /uL (0-450); Eosinophils Percent Auto 4.6 % (2-4); Hematocrit 35.2 % (36-46); Hemoglobin 12.5 g/dL (12.0-16.0); Lymphocytes Absolute Auto 900 /uL (1100-4500); Lymphocytes Percent Auto 16.3 % (25-40); Mean Corpuscular HGB Conc 35.4 % (30-36); Mean Corpuscular Hemoglobin 41.7 PG (26-34); Mean Corpuscular Volume 117.8 fL (80-100); Monocytes Absolute Auto 500 /uL (0-900); Monocytes Percent Auto 9.2 % (3-14); Neutrophils Absolute Auto 4000 /uL (1500-7000); Neutrophils Percent Auto 68.8 % (50-75); Platelet Count 216 X10^3/uL (150-400); Red Blood Cell Count 2.99 X10^6/uL (4.0-5.2); Red Cell Distribution Width 13.9 % (11.6-14.8); White Blood Cell Count 5.8 X10^3/uL (4.5-11.0)
[2019-05-31 19:10] LABS: Alanine Aminotransferase 40 IU/L (9-52); Albumin 3.9 g/dL (3.5-5.0); Albumin Globulin Ratio 1.1 (1.0-2.8); Alkaline Phosphatase 156 U/L (38-126); Aspartate Aminotransferase 76 IU/L (14-36); BUN Creatinine Ratio 17.3 (6-22); Bilirubin Total 0.9 mg/dL (0.2-1.3); Blood Urea Nitrogen 19 mg/dL (7-17); Calcium 12.5 mg/dL (8.4-10.2); Carbon Dioxide 32 mmol/L (22-32); Chloride 94 mmol/L (98-107); Cholesterol 154 mg/dL (140-199); Globulin 3.6 g/dL (1.7-4.1); Glucose 114 mg/dL (80-110); HDL Cholesterol 72 mg/dL (40-60); HEMOLYSIS < 15 (0-50); LDL Cholesterol Calculated 66 mg/dL (<100); Magnesium 1.7 mg/dL (1.6-2.3); Sodium 138 mmol/L (137-145); Total Protein 7.5 g/dL (6.3-8.2); Triglycerides 79 mg/dL (35-150)
[2019-05-31 19:23] LABS: Anisocytosis 1+; Polychromasia 1+
[2019-05-31 19:38] LABS: TSH w/ Reflex to FT4 0.98 uIU/mL (0.47-4.68)
[2019-05-31 19:50] LABS: Potassium 1.9 mmol/L (3.4-5.1)
== END ==
PROVIDERS: PCP Physician Assistant; Visit Provider Physician Assistant
DX: I10 Essential (primary) hypertension (principal); E78.5 Hyperlipidemia, unspecified; R63.4 Abnormal weight loss
CPT/HCPCS: 80053; 80061; 83735; 84443; 85025

== ENCOUNTER 2019-06-01 11:21 | Emergency (ER) | payer MEDICARE, OTHER, SELFPAY ==
[2019-06-01] VITALS (8 sets, daily range): BP systolic 103–125; BP diastolic 50–83; PULSE 50–78; RESP 16–21; TEMP 36.9; O2SAT 96–100
--- NOTE | 2019-06-01 11:43 | ED.RECABL ---
HPI - Recheck/Abnormal Lab/Rx General Chief Complaint: Recheck/Abnormal Lab/Rx Stated Complaint: Potassium Dangerously Low Time Seen by Provider: 06/01/19 11:34 Source: family Mode of arrival: Wheelchair Limitations: no limitations and physical limitation History of Present Illness HPI narrative: Patient is a 73-year-old female who presents at the request of her PCP for abnormal potassium level. She was seen by her PCP yesterday for routine checkup. states that she does not talk due to previous stroke she has been gradually getting weaker over the past few weeks. No abrupt changes over the last few days. He states that she used to be on a potassium pill but the pills are so large that she cannot and will not take them. To labs it was 1.9 yesterday. complaint: abnormal lab Related Data Home Medications Medication Instructions Recorded Confirmed tramadol 50 mg PO TID PRN #0 01/11/17 06/01/19 alprazolam 0.5 mg PO DAILY PRN 06/01/19 06/01/19 dabigatran etexilate [Pradaxa] 150 mg PO BID 06/01/19 06/01/19 diltiazem HCl [Cartia XT] 240 mg PO DAILY 06/01/19 06/01/19 Previous Rx's Medication Instructions Recorded metoprolol tartrate 50 mg PO BID #60 tab 01/15/17 potassium chloride 10 meq PO DAILY 5 Days #60 ml 06/01/19 Allergies Allergy/AdvReac Type Severity Reaction Status Date / Time metronidazole [From Flagyl] Allergy Severe Anaphylaxis Verified 07/15/18 22:02 Review of Systems Review of Systems ROS Unobtainable: All systems reviewed & are unremarkable except as noted in HPI and below Constitutional Constitutional: Denies chills, Denies fever(s), Denies lethargy and Denies weakness Cardiovascular Cardiovascular: Denies chest pain, Denies irregular heart rhythm, Denies lightheadedness, Denies palpitations, Denies dyspnea, Denies dyspnea on exertion and Denies orthopnea Respiratory Respiratory: Denies cough, Denies dyspnea, Denies dyspnea on exertion and Denies wheezing Gastrointestinal Gastrointestinal: Denies abdominal pain, Denies change in bowel habits, Denies diarrhea, Denies nausea and Denies vomiting Genitourinary Genitourinary: Denies hematuria, Denies flank pain, Denies urinary incontinence and Denies urinary urgency Musculoskeletal Musculoskeletal: Denies back pain, Denies muscle weakness, Denies numbness and Denies tingling Integumentary/Breasts Skin/Breast: Denies pruritus, Denies erythema, Denies rash and Denies wounds Neurologic Neurologic: Denies numbness, Denies tingling and Denies weakness Endocrine Endocrine: Denies palpitations Allergic/Immunologic Allergic/Immunologic: Denies wheezing Patient History Medical History Atrial fibrillation (Acute) CVA (cerebral vascular accident) (Acute) Expressive aphasia (Acute) Social History (Updated 07/15/18 @ 17:09 by Nury Callejas DO) marital status: household members: spouse Smoking Status: Never smoker alcohol intake: current substance use type: does not use Social History marital status: household members: spouse Smoking Status: Never smoker alcohol intake: current substance use type: does not use alcohol intake frequency: holidays/special occasions only Substance Use Type: does not use Exam Initial Vital Signs Initial Vital Signs: Vital Signs Temperature 98.4 F 06/01/19 11:25 Pulse Rate 56 L 06/01/19 11:25 Respiratory Rate 16 06/01/19 11:25 Blood Pressure 113/83 06/01/19 11:25 Pulse Oximetry 100 06/01/19 11:25 GENERAL: Alert thin week appearing female HEENT: Head atraumatic,EOMI, pupils reactive, face symmetric CARDIOVASCULAR: Regular rate and rhythm without murmurs, rubs or gallops. RESPIRATORY: Breath sounds equal bilaterally, no wheezes rales or rhonchi. ABDOMEN: Soft, nontender. Normoactive bowel sounds all 4 quadrants. No guarding or rebound. EXTREMITIES: Normal range of motion, no clubbing or edema. Neurovascularly intact NEUROLOGICAL: Alert no gross abnormality SKIN: Warm, dry, no laceration, no petechiae, no rashes or lesions. Course Orders Ordered: ED Orders 06/01/19 11:48 Complete Blood Count AUTO DIFF Stat Comprehensive Metabolic Panel Stat Partial Thromboplastin Time Stat Prothrombin Time INR Stat Troponin & CK Cardiac Panel Stat Discontinued Medications Potassium Chloride 40 meq/ (Sodium Chloride) 520 mls @ 130 mls/hr IV NOW ONE Stop: 06/01/19 16:33 Last Infusion: 06/01/19 17:05 Dose: 0 mls/hr Documented by: CLAUDIO Cosigned by: KBROTEM Admin: 06/01/19 13:03 Dose: 130 mls/hr Documented by: CLAUDIO Cosigned by: CPRUITT Potassium Chloride (Potassium Chloride) 40 meq PO NOW ONE Stop: 06/01/19 12:35 Last Admin: 06/01/19 17:13 Dose: 40 meq Documented by: CLAUDIO Vital Signs Vital signs: Vital Signs - 8 hr 06/01/19 11:25 06/01/19 12:05 06/01/19 13:00 Temperature 98.4 F Pulse Rate 56 L 50 L 66 Respiratory Rate 16 16 Blood Pressure 113/83 Blood Pressure [Left Arm] 103/66 106/69 Pulse Oximetry 100 98 96 06/01/19 14:30 06/01/19 15:00 06/01/19 15:30 Temperature Pulse Rate 78 68 65 Respiratory Rate 21 17 19 Blood Pressure Blood Pressure [Left Arm] 104/64 116/64 103/50 L Pulse Oximetry 98 99 98 06/01/19 16:37 06/01/19 17:23 Temperature Pulse Rate 77 78 Respiratory Rate 18 Blood Pressure 125/51 L Blood Pressure [Left Arm] 122/52 L Pulse Oximetry 98 98 MDM - Recheck/Abnormal Lab/Rx Lab Data Attestation: I reviewed the patient's lab results. Result diagrams: 06/01/19 11:48 06/01/19 11:48 Labs: Lab Results 06/01/19 06/01/19 06/01/19 Range/Units 11:48 11:48 11:48 WBC 6.8 (4.5-11.0) X10^3/uL RBC 3.01 L (4.0-5.2) X10^6/uL Hgb 11.9 L (12.0-16.0) g/dL Hct 34.3 L (36-46) % MCV 114.1 H D (80-100) fL MCH 39.5 H (26-34) PG MCHC 34.6 (30-36) % RDW 13.6 (11.6-14.8) % Plt Count 214 (150-400) X10^3/uL Neut % (Auto) 79.6 H (50-75) % Lymph % (Auto) 9.6 L (25-40) % [place] % (Auto) 8.0 (3-14) % Eos % (Auto) 2.6 (2-4) % Baso % (Auto) 0.2 (0-2) % Neut # (Auto) 5400 (7621-1903) /uL Lymph # (Auto) 700 L (9171-9657) /uL [place] # (Auto) 500 (0-900) /uL Eos # (Auto) 200 (0-450) /uL Baso # (Auto) 0 (0-100) /uL RBC Morphology See below Macrocytosis 2+ H PT 17.8 H (10.1-12.7) SECONDS INR 1.5 H (0.9-1.3) APTT 50 H (26.4-36.2) SECONDS Sodium 138 (137-145) mmol/L Potassium 2.6 L* (3.4-5.1) mmol/L Chloride 95 L (98-107) mmol/L Carbon Dioxide 32 (22-32) mmol/L BUN 22 H (7-17) mg/dL Creatinine 1.00 (0.52-1.04) mg/dL Estimated GFR 54.7 L (>60) mL/min BUN/Creatinine Ratio 22.0 (6-22) Glucose 188 H (80-110) mg/dL Calcium 12.2 H (8.4-10.2) mg/dL Total Bilirubin 1.0 (0.2-1.3) mg/dL AST 68 H (14-36) IU/L ALT 24 (9-52) IU/L Alkaline Phosphatase 123 (38-126) U/L Total Creatine Kinase 76 (30-135) U/L CK-MB (CK-2) TNP CK-MB (CK-2) Rel Index TNP Troponin I 0.025 (0.01-0.034) ng/mL Total Protein 7.5 (6.3-8.2) g/dL Albumin 3.9 (3.5-5.0) g/dL Globulin 3.6 (1.7-4.1) g/dL Albumin/Globulin Ratio 1.1 (1.0-2.8) ECG Data Attestation: I personally reviewed and interpreted this ECG as follows: Prior ECG tracings: not available for review Interpretation: Atrial fibrillation, rate 72 with PVCs MDM Narrative Medical decision making narrative: The patient's potassium is actually increased from yesterday. A however still low. She will need IV potassium. She has date decreased oral intake possibly causing decreased potassium. It does not appear that she is on any medication she has not had any vomiting or diarrhea or other losses. Patient is unable to swallow low potassium tablets I will write her for liquid potassium Discharge Plan Departure Patient Disposition: Home Clinical Impression: Acute hypokalemia Discharge Date/Time: 06/01/19 17:23 Instructions: Hypokalemia Activity Restrictions/Additional Instructions: *You have been diagnosed with hypokalemia *What to do: Please have your potassium recheck with her PCP next week *Continue to take medications as directed potassium chloride 10 mEq once a day--> SENT TO [facility] IN [place] *Follow up with your primary care provider in 2-3 days *Return to ER if you should have increasing weakness, fatigue, vomiting, diarrhea, chest pain palpitations or any new, worsening or concerning symptoms Prescriptions: New potassium chloride 20 mEq/15 mL liquid 10 meq PO DAILY 5 Days Qty: 60 RF: 0 No Action tramadol 50 MG tablet 50 mg PO TID PRN (Reason: Pain (Scale Score 4-6)) Qty: 0 RF: 0 metoprolol tartrate 50 MG tablet 50 mg PO BID Qty: 60 RF: 0 diltiazem HCl [Cartia XT] 240 mg capsule,extended release 24hr 240 mg PO DAILY RF: 0 alprazolam 0.5 mg tablet 0.5 mg PO DAILY PRN (Reason: Anxiety) RF: 0 Pradaxa 150 mg capsule 150 mg PO BID RF: 0 Referrals: Caitlin Pressley PA-C [Primary Care Provider] -
[2019-06-01 11:57] LABS: Add Manual Diff / Slide Review NO; Basophils Absolute Auto 0 /uL (0-100); Basophils Percent Auto 0.2 % (0-2); Eosinophils Absolute Auto 200 /uL (0-450); Eosinophils Percent Auto 2.6 % (2-4); Hematocrit 34.3 % (36-46); Hemoglobin 11.9 g/dL (12.0-16.0); Lymphocytes Absolute Auto 700 /uL (1100-4500); Lymphocytes Percent Auto 9.6 % (25-40); Mean Corpuscular HGB Conc 34.6 % (30-36); Mean Corpuscular Hemoglobin 39.5 PG (26-34); Mean Corpuscular Volume 114.1 fL (80-100); Monocytes Absolute Auto 500 /uL (0-900); Neutrophils Absolute Auto 5400 /uL (1500-7000); Neutrophils Percent Auto 79.6 % (50-75); Platelet Count 214 X10^3/uL (150-400); Red Blood Cell Count 3.01 X10^6/uL (4.0-5.2); Red Cell Distribution Width 13.6 % (11.6-14.8); White Blood Cell Count 6.8 X10^3/uL (4.5-11.0)
[2019-06-01 12:06] LABS: INR 1.5 (0.9-1.3); Prothrombin Time 17.8 SECONDS (10.1-12.7)
[2019-06-01 12:08] LABS: PTT Partial Thromboplastin Tim 50 SECONDS (26.4-36.2)
[2019-06-01 12:10] LABS: Alanine Aminotransferase 24 IU/L (9-52); Albumin 3.9 g/dL (3.5-5.0); Albumin Globulin Ratio 1.1 (1.0-2.8); Alkaline Phosphatase 123 U/L (38-126); Aspartate Aminotransferase 68 IU/L (14-36); Blood Urea Nitrogen 22 mg/dL (7-17); Calcium 12.2 mg/dL (8.4-10.2); Carbon Dioxide 32 mmol/L (22-32); Chloride 95 mmol/L (98-107); Creatine Kinase 76 U/L (30-135); Estimated Glomerular Filt Rate 54.7 mL/min (>60); Globulin 3.6 g/dL (1.7-4.1); Glucose 188 mg/dL (80-110); Sodium 138 mmol/L (137-145); Total Protein 7.5 g/dL (6.3-8.2)
[2019-06-01 12:15] LABS: HEMOLYSIS 88 (0-50)
[2019-06-01 12:23] LABS: Troponin I 0.025 ng/mL (0.01-0.034)
[2019-06-01 12:26] LABS: Potassium 2.6 mmol/L (3.4-5.1)
[2019-06-01 12:36] LABS: Macrocytosis 2+
[2019-06-01] MEDS: POTASSIUM CHLORIDE 40 MEQ in SODIUM CHLORIDE 0.9% 500 ML 130 ML IV (13:03)
[2019-06-01] MEDS: POTASSIUM CHLORIDE 20 MEQ/15 ML UDC 40 MEQ PO (17:13)
== END 2019-06-01 17:23 | disposition home or self-care (01) ==
PROVIDERS: Emergency Provider Emergency Medicine; PCP Physician Assistant
DX: E87.6 Hypokalemia (principal)
CPT/HCPCS: 36415; 80053; 82550; 84484; 85025; 85610; 85730; 93005; 96365; 96366; 99283; 99284; J3480

== ENCOUNTER 2020-01-25 13:24 | Emergency (ER) | payer MEDICARE, OTHER, SELFPAY ==
[2020-01-25] VITALS (11 sets, daily range): BP systolic 82–95; BP diastolic 52–55; PULSE 33–69; RESP 23–38; TEMP 35.9–36.4
--- NOTE | 2020-01-25 13:28 | DI.RAD.S_ITS ---
PROCEDURE: XR CHEST 1V INDICATIONS: PNEUMO OR FLUID? TECHNIQUE: One view of the chest was acquired. COMPARISON: [facility], CR, XR CHEST 1V, 07/17/2018, 8:29. FINDINGS: Surgical changes and devices: An endotracheal tube is identified with the tip positioned approximately 4.8 cm above the level of the rafy. A left-sided central line catheter is seen with the tip overlying the mid superior vena cava. Postoperative changes are present involving the right clavicle. Lungs and pleura: There is increased density at the left lung base with blunting of the costophrenic angle, which is new since the prior study. Interstitial prominence throughout the lungs is identified, most pronounced within the perihilar regions and more prominent on the left. Homogeneous opacity is evident at the left lung apex that extends along the lateral aspect of the left hemithorax. No pneumothorax is appreciated. Mediastinum: Mediastinal contours appear normal. The heart appears to be enlarged. Bones and chest wall: No suspicious bony lesions. Overlying soft tissues appear unremarkable. IMPRESSION: 1. Moderate-sized left-sided pleural effusion with associated atelectasis. 2. Cardiomegaly with associated prominent vascular congestion is suggestive of potential congestive heart failure. 3. No pneumothorax. 4. Tubes and lines, as described. Dictated by: Cecilio Najera M.D. on 01/25/2020 at 13:46 Approved by: Cecilio Najera M.D. on 01/25/2020 at 13:48
--- NOTE | 2020-01-25 13:28 | DI.CT.S_ITS ---
PROCEDURE: CT HEAD/BRAIN WO CON INDICATIONS: unresponsive previous stroke TECHNIQUE: Noncontrast 4.5 mm thick angled axial sections acquired from the foramen magnum to the vertex, with coronal and sagittal reformats. For radiation dose reduction, the following was used: automated exposure control, adjustment of mA and/or kV according to patient size. COMPARISON: [facility], CT, CT HEAD/BRAIN WO CON, 10/06/2018, 12:41. [facility], CT, HEAD WITHOUT CONTRAST, 01/11/2017, 16:08. [facility], MR, STROKE PROTOCOL, 01/12/2017, 15:19. FINDINGS: Image quality: Excellent. CSF spaces: Basal cisterns are patent. No extra-axial fluid collections. The ventricles demonstrate stable prominence. Brain: No intracranial bleeds or masses. There is cerebral volume loss for age, with resultant ventricular and sulcal prominence. There is a remote left frontal lobe infarct seen is encephalomalacia and volume loss, as on series 7 image 11. There are periventricular and deep white matter chronic small vessel ischemic changes. There is intracranial internal carotid artery atherosclerosis. Skull and face: Calvarium and visualized facial bones appear intact, without suspicious lesions. Sinuses: Moderate mucosal thickening is seen within the ethmoid air cells. The paranasal sinuses otherwise appear clear. No abnormal fluid is seen within the mastoid air cells. There is partial visualization of an endotracheal tube and an orogastric tube. IMPRESSION: No shaista, acute abnormality is seen. No acute intracranial hemorrhage is seen. Remote left frontal lobe infarct. Stable prominence of the lateral ventricles. Differential diagnosis includes normal pressure hydrocephalus and central atrophy. Dictated by: Quang Dupont M.D. on 01/25/2020 at 15:25 Approved by: Quang Dupont M.D. on 01/25/2020 at 15:28
[2020-01-25 13:57] LABS: Add Manual Diff / Slide Review NO; Basophils Absolute Auto 0 /uL (0-100); Basophils Percent Auto 0.4 % (0-2); Eosinophils Absolute Auto 0 /uL (0-450); Eosinophils Percent Auto 0.2 % (2-4); Lymphocytes Absolute Auto 1100 /uL (1100-4500); Lymphocytes Percent Auto 14.1 % (25-40); Mean Corpuscular HGB Conc 29.9 % (30-36); Mean Corpuscular Hemoglobin 29.8 PG (26-34); Mean Corpuscular Volume 99.7 fL (80-100); Monocytes Absolute Auto 500 /uL (0-900); Monocytes Percent Auto 6.2 % (3-14); Neutrophils Absolute Auto 6400 /uL (1500-7000); Neutrophils Percent Auto 79.1 % (50-75); Platelet Count 284 X10^3/uL (150-400); Red Blood Cell Count 2.04 X10^6/uL (4.0-5.2); Red Cell Distribution Width 16.3 % (11.6-14.8); White Blood Cell Count 8.2 X10^3/uL (4.5-11.0)
[2020-01-25 13:59] LABS: Hemoglobin 6.1 g/dL (12.0-16.0)
[2020-01-25 14:00] LABS: Hematocrit 20.4 % (36-46)
[2020-01-25 14:07] LABS: Lactate (Lactic Acid) 9.1 mmol/L (0.7-2.1)
[2020-01-25 14:08] LABS: Albumin 2.4 g/dL (3.5-5.0); Albumin Globulin Ratio 0.8 (1.0-2.8); Alkaline Phosphatase 61 U/L (38-126); Aspartate Aminotransferase 145 IU/L (14-36); BUN Creatinine Ratio 15.9 (6-22); Bilirubin Total 0.5 mg/dL (0.2-1.3); Blood Urea Nitrogen 28 mg/dL (7-17); Calcium 8.7 mg/dL (8.4-10.2); Carbon Dioxide 16 mmol/L (22-32); Chloride 96 mmol/L (98-107); Creatine Kinase < 20 U/L (30-135); Estimated Glomerular Filt Rate 28.4 mL/min (>60); Globulin 2.9 g/dL (1.7-4.1); Glucose 183 mg/dL (80-110); HEMOLYSIS < 15 (0-50); Lactate Dehydrogenase 898 U/L (313-618); Potassium 5.6 mmol/L (3.4-5.1); Sodium 127 mmol/L (137-145); Total Protein 5.3 g/dL (6.3-8.2)
[2020-01-25 14:15] LABS: Alanine Aminotransferase 54 IU/L (<35)
[2020-01-25 14:18] LABS: Troponin I 0.015 ng/mL (0.01-0.034)
[2020-01-25 14:55] LABS: pH ABG 7.13 (7.35-7.45)
[2020-01-25 14:56] LABS: Fractionated Inspired Oxygen 100; HCO3 ABG 18 mmol/L (22-26); Oxygen Saturation ABG 99 % (95-100); PCO2 ABG 53.2 mmHg (35-45); PO2 ABG 212 mmHg (80-100); TCO2 ABG 19 mmol/L (21-31)
--- NOTE | 2020-01-25 15:19 | ED.GENADULT ---
HPI - General Adult General Chief complaint: Unresponsive Stated complaint: Unresponsive Time Seen by Provider: 01/25/20 13:28 History of Present Illness HPI narrative: CC: Unresponsive an agonal breathing HPI: Patient is a 74-year-old female who was transferred to the emergency department by EMS after they intubated her. The patient was noted to be apneic with agonal respirations. She was also noted to be extremely bradycardic with a heart rate running between 29 and 33. They administered 1 mg of atropine intubated the patient and transferred her to the emergency department. Two years ago the patient had a stroke with left her aphasic. The patient has been steadily declining over the last several months. Over the last several weeks she has been unable to walk and ambulate. The patient prior to that was able to walk with a walker. Her caregiver is her . He states that the patient has not wanted to eat and has been steadily deteriorating. He denies that she has complained of any pain or discomfort fever chills sweats nausea vomiting diarrhea or black melanotic stool. Is on Pradaxa and has a history of atrial fibrillation for which she is on metoprolol and aprazolam. Related Data Home Medications Medication Instructions Recorded Confirmed tramadol 50 mg PO TID PRN #0 01/11/17 06/01/19 alprazolam 0.5 mg PO DAILY PRN 06/01/19 06/01/19 dabigatran etexilate [Pradaxa] 150 mg PO BID 06/01/19 06/01/19 diltiazem HCl [Cartia XT] 240 mg PO DAILY 06/01/19 06/01/19 Previous Rx's Medication Instructions Recorded metoprolol tartrate 50 mg PO BID #60 tab 01/15/17 Allergies Allergy/AdvReac Type Severity Reaction Status Date / Time metronidazole [From Flagyl] Allergy Severe Anaphylaxis Verified 07/15/18 22:02 Review of Systems Review of Systems Narrative: The patient is comatose, intubated and aphasic after a remote stroke and unable to provide any history on her own. Patient History Medical History Atrial fibrillation (Acute) CVA (cerebral vascular accident) (Acute) Expressive aphasia (Acute) Social History marital status: household members: spouse Smoking Status: Never smoker alcohol intake: current substance use type: does not use Smoking Status: Never smoker alcohol intake frequency: holidays/special occasions only Substance Use Type: does not use Exam Narrative Exam Narrative: PHYSICAL EXAM: CONSTITUTIONAL: comatose and unresponsive, orally intubated HEAD: AT/NC EENT: Pupils are mid range to slightly enlarged and non responsive to light. The patient does not blink open her eyes are closed her eyes. EARS:No drainage from the ears, NOSE:No epistaxis or nasal drainage MOUTH: Oral intubation with an endotracheal tube. NECK: Supple, no obvious JVD, Trachea is midline .. THORAX: No deformity, retractions, the patient chest wall is very thin and rachitic LUNGS: The patient has bilateral breath sounds with a few inspiratory crackles and a few expiratory rhonchi bilaterally. HEART: very bradycardic ,very distant and irregular. ABDOMEN: Soft, non-tender, without guarding, rebound, rigidity . EXTREMITIES: No edema, deformity, tenderness or cyanosis. SKIN: No rash, bruising, petechiae or purpura. NEURO: Comatse and unresponsive. The patient minimally moves all 4 extremities to noxious stimuli. The patient does not open her eyes or follow any directions. There does not appear to be any focal facial asymmetry. Initial Vital Signs Initial Vital Signs: Vital Signs Temperature 97.2 F L 01/25/20 16:41 Pulse Rate 69 01/25/20 16:41 Respiratory Rate 34 H 01/25/20 16:41 Course Course Course Narrative: 1519: After reviewing the patient's past medical history and the serious grave situation and prognosis of the patient, I had had multiple talks with the patient's who wants everything done. I am not sure that the patient's understands the seriousness of this situation. At this time he wants us to keep the patient alive until her his son's arrive and explained the situation to them. 2 units of type specific packed red blood cells have been ordered for the patient the patient has been administered 2 units of O-negative blood. She has received 2 L of normal saline and will be administered third liter of lactated Ringer's. The patient's portable chest x-ray reveals that her endotracheal tube is in good position and the left subclavian is in the superior vena cava in good position. There is no pneumothorax. The patient has a moderate-sized left pleural effusion. It is unknown whether not this is a pleural effusion or a hemothorax. There is no evidence of a pneumothorax. The patient's chest x-ray reveals cardiomegaly with associated prominent vascular congestion suggestive of congestive heart failure. 1531: The crinkling machine operator has discussed the situation in the gravity of the situation with the patient's . At this time we are waiting for his 2 sons to return to the emergency department. The anodic treater at [facility] agrees with the evaluation. She recommends that the patient be started on dobutamine and then dopamine. I spoke with afterwards to Dr. Rodriguez the music composition teacher at [facility]. She states that she would accept the patient but only if the patient develops a blood pressure. At this time the patient has developed a systolic blood pressure of 79 after administering 2 amps of calcium chloride to neutralize any calcium channel blocking agent that she may have been taken for her atrial fibrillation. She has been administered 2 units of O-negative blood and 2 units of type specific blood is now being ordered for the patient. She has received 2 L of normal saline and is now on lactated Ringer's at 150 cc/hour. The patient is on Levophed at Julien 10 micro g and has been started on dopamine rather than dobutamine up on upon Dr. Rodriguez's recomendation. 1647: CT of the patient's head reveals no shaista acute abnormality. There is a remote left frontal lobe infarct. Stable prominence of the lateral ventricles. Differential diagnosis includes normal pressure hydrocephalus and central atrophy. This reading was provided by Dr. Dupont. Repeat blood gases reveal a pH is 7.140 a pCO2 of 65.0 a PO2 of 88 a bicarb of 22.1 total CO2 of 24 oxygen saturation 93%. The patient's volume has had to be turned down the patient is breathing on her own at 36 per minute because she is having peak volume pressures. To support the patient's blood pressure she has received 3 units of packed red blood cells she is currently on a dopamine drip an external pacemaker of 68 fentanyl drip and lactated Ringer's running at 150 cc/hour. She is also receiving the 3rd unit of packed red blood cells. At this time we are waiting for the hospitalist at [facility] to call back and except the patient being transferred. 1708: I discussed the Dr. Zhong the hospitalist at [facility] who has accepted the patient being transferred and admitted to the intensive care unit with the music composition teacher consult ink and or an associate consult and for up possible pacemaker since the patient is on an external pacemaker. The family has been informed that she may not do very well despite being transferred and she has a grave prognosis. The patient's repeat lactic acid after 2 L of normal saline and 3 units of packed red blood cells is 5.2. Procedure Note: As a result of the patient's persistent hypotension on arrival and the need to support with pressor agents her heart rate and blood pressure since it was not responding to the external pacemaker a a triple-lumen central line located in the left subclavian vein was initiated. The patient had previous surgery and scarring along the right clavicle for a previous fracture with internal fixation that this side was not used. The left subclavian including shoulder and left chest was prepped with a Chloraseptic cleansing agent. A sterile drape covering this area was then placed over the patient. The patient was placed in Trendelenburg and a towel placed between her shoulders and back to expose the subclavian area was established. Using the Arrow subclavian kit and the Seldinger technique the under the the left clavicle with continuous suction. Three attempts were necessary to locate the subclavian vein at which time the guidewire was passed through the syringe and needle and the syringe and needle removed as soon as the guidewire was in location. The skin was then incised with a stab wound at the guidewire introducer passed to dilate the pathway and the triple-lumen catheter slid over the guidewire. Blood return from all 3 ports. The ports were secured with caps and irrigated with sterile saline. The subclavian catheter was sutured in place, dressed sterilely with Tegaderm. A stat portable chest x-ray was obtained which revealed that the endotracheal tube was in good location as well as the left subclavian catheter with the tip being located in superior vena cava. The catheter was then used for the administration of the pressor agents and medications. The patient appeared to tolerate the procedure well. Critical Care Time: Continuous resuscitation from hypotension , independent of procedures and insertion orf the left subclavian central line was 2 hours Orders Ordered: Discontinued Medications Atropine Sulfate (Atropine) 1 mg IV NOW ONE Stop: 01/25/20 13:29 Fentanyl (Sublimaze) 50 mcg IV NOW ONE Stop: 01/25/20 15:25 Fentanyl (Sublimaze) 50 mcg IV NOW ONE Stop: 01/25/20 16:10 Sodium Chloride (Normal Saline 0.9%) 1,000 mls @ 1,000 mls/hr IV BOLUS PRN PRN Reason: Fluid replacement Dobutamine HCl/Dextrose (Dobutamine 250 Mg In D5w) 250 mg in 250 mls @ 6.75 mls/hr IV TITRATE SHAHRAM; Protocol Dopamine HCl/Dextrose (Dopamine 400 Mg-D5w 250 Ml) 400 mg in 250 mls @ 8.438 mls/hr IV TITRATE SHAHRAM; Protocol Norepinephrine Bitartrate 4 mg (/ Dextrose) 254 mls @ 38.1 mls/hr IV TITRATE SHAHRAM; Protocol Fentanyl 1,000 mcg/ Dextrose 250 mls @ 7.875 mls/hr IV TITRATE SHAHRAM; Protocol Lorazepam 20 mg/ Sodium (Chloride) 110 mls @ 2.475 mls/hr IV TITRATE SHAHRMA; Protocol Lorazepam (Ativan) 2 mg IV NOW ONE Stop: 01/25/20 16:55 Lorazepam (Ativan) 2 mg IV NOW ONE Stop: 01/25/20 18:46 Vital Signs Vital signs: Vital Signs - 8 hr 01/25/20 16:41 01/25/20 17:01 01/25/20 17:05 Temperature 97.2 F L 96.7 F L Pulse Rate 69 69 Respiratory Rate 34 H 38 H Medical Decision Making Medical Records Medical records reviewed: Yes I reviewed the patient's medical records. Lab Data Lab results reviewed: Yes I reviewed the patient's lab results. Result diagrams: 01/25/20 13:47 01/25/20 13:47 Labs: Lab Results 01/25/20 01/25/20 01/25/20 Range/Units 13:47 13:47 13:47 WBC 8.2 (4.5-11.0) X10^3/uL RBC 2.04 L (4.0-5.2) X10^6/uL Hgb 6.1 L* (12.0-16.0) g/dL Hct 20.4 L* (36-46) % MCV 99.7 (80-100) fL MCH 29.8 (26-34) PG MCHC 29.9 L (30-36) % RDW 16.3 H (11.6-14.8) % Plt Count 284 (150-400) X10^3/uL Neut % (Auto) 79.1 H (50-75) % Lymph % (Auto) 14.1 L (25-40) % [place] % (Auto) 6.2 (3-14) % Eos % (Auto) 0.2 L (2-4) % Baso % (Auto) 0.4 (0-2) % Neut # (Auto) 6400 (7070-2870) /uL Lymph # (Auto) 1100 (7106-9176) /uL [place] # (Auto) 500 (0-900) /uL Eos # (Auto) 0 (0-450) /uL Baso # (Auto) 0 (0-100) /uL ABG pH (7.35-7.45) ABG pCO2 (35-45) mmHg ABG pO2 (80-100) mmHg ABG HCO3 (22-26) mmol/L ABG Total CO2 (21-31) mmol/L ABG O2 Saturation (95-100) % ABG Base Excess (-2-2) mmol/L FiO2 Sodium 127 L (137-145) mmol/L Potassium 5.6 H (3.4-5.1) mmol/L Chloride 96 L (98-107) mmol/L Carbon Dioxide 16 L (22-32) mmol/L BUN 28 H (7-17) mg/dL Creatinine 1.76 H (0.52-1.04) mg/dL Estimated GFR 28.4 L (>60) mL/min BUN/Creatinine Ratio 15.9 (6-22) Glucose 183 H (80-110) mg/dL Lactate 9.1 H* (0.7-2.1) mmol/L Calcium 8.7 (8.4-10.2) mg/dL Total Bilirubin 0.5 (0.2-1.3) mg/dL AST 145 H (14-36) IU/L ALT 54 H (<35) IU/L Alkaline Phosphatase 61 (38-126) U/L Lactate Dehydrogenase 898 H (313-618) U/L Total Creatine Kinase < 20 L (30-135) U/L CK-MB (CK-2) TNP CK-MB (CK-2) Rel Index TNP Troponin I 0.015 (0.01-0.034) ng/mL Total Protein 5.3 L (6.3-8.2) g/dL Albumin 2.4 L (3.5-5.0) g/dL Globulin 2.9 (1.7-4.1) g/dL Albumin/Globulin Ratio 0.8 L (1.0-2.8) COVID-19 PCR (Negative) Blood Type Antibody Screen Crossmatch 01/25/20 01/25/20 01/25/20 Range/Units 14:10 14:18 15:23 WBC (4.5-11.0) X10^3/uL RBC (4.0-5.2) X10^6/uL Hgb (12.0-16.0) g/dL Hct (36-46) % MCV (80-100) fL MCH (26-34) PG MCHC (30-36) % RDW (11.6-14.8) % Plt Count (150-400) X10^3/uL Neut % (Auto) (50-75) % Lymph % (Auto) (25-40) % [place] % (Auto) (3-14) % Eos % (Auto) (2-4) % Baso % (Auto) (0-2) % Neut # (Auto) (0825-4422) /uL Lymph # (Auto) (1357-0786) /uL [place] # (Auto) (0-900) /uL Eos # (Auto) (0-450) /uL Baso # (Auto) (0-100) /uL ABG pH 7.13 L* (7.35-7.45) ABG pCO2 53.2 H (35-45) mmHg ABG pO2 212 H (80-100) mmHg ABG HCO3 18 L (22-26) mmol/L ABG Total CO2 19 L (21-31) mmol/L ABG O2 Saturation 99 (95-100) % ABG Base Excess -11.0 L (-2-2) mmol/L FiO2 100 Sodium (137-145) mmol/L Potassium (3.4-5.1) mmol/L Chloride (98-107) mmol/L Carbon Dioxide (22-32) mmol/L BUN (7-17) mg/dL Creatinine (0.52-1.04) mg/dL Estimated GFR (>60) mL/min BUN/Creatinine Ratio (6-22) Glucose (80-110) mg/dL Lactate (0.7-2.1) mmol/L Calcium (8.4-10.2) mg/dL Total Bilirubin (0.2-1.3) mg/dL AST (14-36) IU/L ALT (<35) IU/L Alkaline Phosphatase (38-126) U/L Lactate Dehydrogenase (313-618) U/L Total Creatine Kinase (30-135) U/L CK-MB (CK-2) CK-MB (CK-2) Rel Index Troponin I (0.01-0.034) ng/mL Total Protein (6.3-8.2) g/dL Albumin (3.5-5.0) g/dL Globulin (1.7-4.1) g/dL Albumin/Globulin Ratio (1.0-2.8) COVID-19 PCR Negative (Negative) Blood Type O Positive Antibody Screen Negative Crossmatch See Detail 01/25/20 01/25/20 Range/Units 16:45 16:48 WBC (4.5-11.0) X10^3/uL RBC (4.0-5.2) X10^6/uL Hgb (12.0-16.0) g/dL Hct (36-46) % MCV (80-100) fL MCH (26-34) PG MCHC (30-36) % RDW (11.6-14.8) % Plt Count (150-400) X10^3/uL Neut % (Auto) (50-75) % Lymph % (Auto) (25-40) % [place] % (Auto) (3-14) % Eos % (Auto) (2-4) % Baso % (Auto) (0-2) % Neut # (Auto) (2862-7529) /uL Lymph # (Auto) (4800-7908) /uL [place] # (Auto) (0-900) /uL Eos # (Auto) (0-450) /uL Baso # (Auto) (0-100) /uL ABG pH 7.14 L* (7.35-7.45) ABG pCO2 65.0 H* (35-45) mmHg ABG pO2 88 (80-100) mmHg ABG HCO3 22 (22-26) mmol/L ABG Total CO2 24 (21-31) mmol/L ABG O2 Saturation 93 L (95-100) % ABG Base Excess -7.0 L (-2-2) mmol/L FiO2 80 Sodium (137-145) mmol/L Potassium (3.4-5.1) mmol/L Chloride (98-107) mmol/L Carbon Dioxide (22-32) mmol/L BUN (7-17) mg/dL Creatinine (0.52-1.04) mg/dL Estimated GFR (>60) mL/min BUN/Creatinine Ratio (6-22) Glucose (80-110) mg/dL Lactate 5.2 H* (0.7-2.1) mmol/L Calcium (8.4-10.2) mg/dL Total Bilirubin (0.2-1.3) mg/dL AST (14-36) IU/L ALT (<35) IU/L Alkaline Phosphatase (38-126) U/L Lactate Dehydrogenase (313-618) U/L Total Creatine Kinase (30-135) U/L CK-MB (CK-2) CK-MB (CK-2) Rel Index Troponin I (0.01-0.034) ng/mL Total Protein (6.3-8.2) g/dL Albumin (3.5-5.0) g/dL Globulin (1.7-4.1) g/dL Albumin/Globulin Ratio (1.0-2.8) COVID-19 PCR (Negative) Blood Type Antibody Screen Crossmatch ECG Data Attestation: I personally reviewed and interpreted this ECG as follows: Interpretation: The patient's EKG reveals an atrial fibrillation with slow ventricular response. Her ventricular rate is 33. QRS is 105 milliseconds. QTC is borderline at 450 milliseconds axis is normal at 47. The patient has low voltage. There are no acute diagnostic ST segment changes noted. Discharge Plan Departure Patient Disposition: [facility] Clinical Impression: Bradycardia, Unresponsive, Aphasia, Acidosis, lactic, Metabolic acidosis, Pleural effusion, Remote history of stroke Atrial fibrillation Qualifiers: Atrial fibrillation type: unspecified Qualified Code(s): I48.91 - Unspecified atrial fibrillation Hypotension Qualifiers: Hypotension type: other hypotension type Qualified Code(s): I95.89 - Other hypotension Anemia Qualifiers: Anemia type: unspecified type Qualified Code(s): D64.9 - Anemia, unspecified Discharge Date/Time: 01/25/20 19:05 Prescriptions: No Action tramadol 50 MG tablet 50 mg PO TID PRN (Reason: Pain (Scale Score 4-6)) Qty: 0 RF: 0 metoprolol tartrate 50 MG tablet 50 mg PO BID Qty: 60 RF: 0 diltiazem HCl [Cartia XT] 240 mg capsule,extended release 24hr 240 mg PO DAILY RF: 0 alprazolam 0.5 mg tablet 0.5 mg PO DAILY PRN (Reason: Anxiety) RF: 0 Pradaxa 150 mg capsule 150 mg PO BID RF: 0 Referrals: Caitlin Pressley PA-C [Primary Care Provider] -
[2020-01-25 15:52] LABS: Reflexed Lactate in 2 Hours Y
[2020-01-25 17:06] LABS: Lactate 2HR (Lactic Acid Rflx) 5.2 mmol/L (0.7-2.1)
[2020-01-25 17:12] LABS: COVID19 -Nasal RAPID Negative (Negative)
--- NOTE | 2020-01-25 19:12 | PC.NURSE ---
Attempted to call report to [facility],nurse will call back
[2020-01-25 21:18] LABS: pH ABG 7.14 (7.35-7.45)
[2020-01-25 21:19] LABS: Fractionated Inspired Oxygen 80; HCO3 ABG 22 mmol/L (22-26); Oxygen Saturation ABG 93 % (95-100); PO2 ABG 88 mmHg (80-100); TCO2 ABG 24 mmol/L (21-31)
--- NOTE | 2020-01-25 21:21 | RT ---
1900 Patient transported to [facility] on Vent settings of 350, 32, +5, 80%. [facility] hospital vent taken as ambulance vent battery not maintaining charge.
== END 2020-01-25 19:05 | disposition short-term general hospital (02) ==
PROVIDERS: Emergency Provider Emergency Medicine; PCP Physician Assistant
DX: R00.1 Bradycardia, unspecified (principal); I48.91 Unspecified atrial fibrillation; Z79.01 Long term (current) use of anticoagulants; I95.89 Other hypotension; D64.9 Anemia, unspecified; R47.01 Aphasia; E87.2 Acidosis; J90 Pleural effusion, not elsewhere classified; Z86.73 Personal history of transient ischemic attack (TIA), and cerebral infarction without residual deficits
CPT/HCPCS: 36415; 36430; 36600; 70450; 71045; 80053; 82550; 82805; 83605; 83615; 84484; 85025; 86850; 86900; 86901; 87635; 93005; 94002; 94003; 94770; 94799; 99284; 99291; 99292; P9016; J0171; J2543